=== PATIENT | female | born 1985 ===

== ENCOUNTER 2018-01-17 23:20 | Inpatient (IN) | payer BC ==
[2018-01-17 23:38] VITALS: BMI 23.4
[2018-01-18] MEDS ORDERED: Sodium Chloride 0.9% 500 ML IV STA (00:10)
--- NOTE | 2018-01-18 00:14 | ED PDOC ---
Arrival/HPI <Luis E Koroma - Last Filed: 01/18/18 02:56> - General Historian: Patient <Brianne Jolly PA-C - Last Filed: 01/18/18 19:53> - General Chief Complaint: Back Pain Time Seen by Provider: 01/17/18 23:49 - History of Present Illness Narrative History of Present Illness (Text): 01/18/18 00:11 32 yo F c/o gradual onset of constant b/l flank pain radiating to the b/l hips x2-3 days associated with nausea, worsening in intensity, she has been taking motrin with relief, but no relief today. Denies any h/o fever, chills, abdominal pain, V/D, urinary symptoms, trauma, injury, bowel/bladder incontinence, prior back pain, LE numbness or weakness, h/o renal stones/renal infection, h/o IVDU. (Brianne Jolly PA-C) Past Medical History - Infectious Disease Hx of Infectious Diseases: None - Cardiac Hx Cardiac Disorders: No - Pulmonary Hx Respiratory Disorders: Yes Hx Asthma: Yes - Neurological Hx Neurological Disorder: No - HEENT Hx HEENT Disorder: No - Renal Hx Renal Disorder: No - Endocrine/Metabolic Hx Endocrine Disorders: No - Hematological/Oncological Hx Blood Disorders: No - Integumentary Hx Dermatological Disorder: No - Musculoskeletal/Rheumatological Hx Musculoskeletal Disorders: No - Gastrointestinal Hx Gastrointestinal Disorders: No - Genitourinary/Gynecological Hx Genitourinary Disorders: No - Psychiatric Hx Psychophysiologic Disorder: No Hx Substance Use: No <Brianne Jolly PA-C - Last Filed: 01/18/18 19:53> Family/Social History Family/Social History: No Known Family HX Smoking Status: Never Smoked Hx Alcohol Use: Yes Frequency of alcohol use: Socially Hx Substance Use: No <Brianne Jolly PA-C - Last Filed: 01/18/18 19:53> Allergies/Home Meds <Luis E Koroma - Last Filed: 01/18/18 02:56> <Brianne Jolly PA-C - Last Filed: 01/18/18 19:53> Allergies/Adverse Reactions: Allergies No Known Allergies Allergy (Verified 01/17/18 23:38) Home Medications: Home Meds Medication Instructions Recorded Confirmed No Known Home Med 01/17/18 01/17/18 Review of Systems - Review of Systems Constitutional: absent: Fatigue, Fevers Respiratory: absent: SOB, Cough Cardiovascular: absent: Chest Pain, Palpitations Gastrointestinal: Nausea. absent: Abdominal Pain, Vomiting Genitourinary Female: absent: Dysuria, Frequency, Hematuria Musculoskeletal: Back Pain. absent: Arthralgias, Neck Pain, Joint Swelling Skin: absent: Rash, Pruritis, Skin Lesions Neurological: absent: Headache, Dizziness <Brianne Jolly PA-C - Last Filed: 01/18/18 19:53> Physical Exam Temperature: Afebrile Blood Pressure: Normal Pulse: Regular Respiratory Rate: Normal Appearance: Positive for: Well-Appearing, Non-Toxic, Comfortable Pain Distress: Moderate Mental Status: Positive for: Alert and Oriented X 3 - Systems Exam Head: Present: Atraumatic, Normocephalic Pupils: Present: PERRL Extroacular Muscles: Present: EOMI Conjunctiva: Present: Normal Mouth: Present: Moist Mucous Membranes Neck: Present: Normal Range of Motion Respiratory/Chest: Present: Clear to Auscultation, Good Air Exchange. No: Respiratory Distress, Accessory Muscle Use Cardiovascular: Present: Regular Rate and Rhythm, Normal S1, S2. No: Murmurs Abdomen: Present: Tenderness (+L flank tenderness). No: Distention, Peritoneal Signs Back: Present: Normal Inspection, CVA Tenderness (+b/l CVA tenderness), Paraspinal Tenderness (+paralumbar tenderness). No: Midline Tenderness, Pain with Leg Raise Upper Extremity: Present: Normal Inspection. No: Cyanosis, Edema Lower Extremity: Present: Normal Inspection, NORMAL PULSES, Normal ROM, Neurovascularly Intact, Capillary Refill < 2 s. No: Edema, Tenderness, Swelling , Deformity, Temperature Abnormalties Neurological: Present: GCS=15, CN II-XII Intact, Speech Normal, Motor Func Grossly Intact, Normal Sensory Function Skin: Present: Warm, Dry, Normal Color. No: Rashes Psychiatric: Present: Alert, Oriented x 3, Normal Insight, Normal Concentration <Brianne Jolly PA-C - Last Filed: 01/18/18 19:53> Vital Signs Temp Pulse Resp BP Pulse Ox 01/18/18 03:26 82 20 113/72 99 01/17/18 23:38 98.6 F 102 H 18 119/78 98 Medical Decision Making <Luis E Koroma - Last Filed: 01/18/18 02:56> <Brianne Jolly PA-C - Last Filed: 01/18/18 19:53> ED Course and Treatment: EXAM: CT Abdomen and Pelvis Without Intravenous Contrast Dictated and Authenticated by: Shaun Oakley MD 01/18/2018 2:18 AM IMPRESSION: 1. Mild left hydronephrosis and perinephric stranding. No renal or ureteral stones. This could be due to a recently passed stone, a non-radiopaque filling defect such as blood clot or soft tissue, or reflux/infection. 2. 6.2 cm low density left adnexal lesion likely a mildly complicated cyst. Recommend ultrasound characterization when clinically appropriate. 3. Borderline gallbladder wall thickening without gallbladder distention or calcified stones. Cholecystitis is considered to be unlikely based on these findings, but if clinically suspected could be correlated with ultrasound. 01/18/18 02:53 On reexamination, patient is still with left flank pain which is now returning. CT was reviewed. Patient will be admitted to hospitalist for acute pyelonephritis. Case discussed with medical registrar and Dr. Tello who is aware and agrees with the plan. Accepts patient into hospitalist service. (Luis E Koroma) 01/18/18 00:15 Impression : r/o renal colic, consider musculoskeletal back pain Plan : - IV - NS bolus IV - Labs - UA - Uhcg - CT A/P - Toradol IV - Zofran 4 mg IV Labs reviewed : wbc wnl, cmp/lipse wnl, UA +blood/+nitrate/large leuks, wbc tntc. Uhcg (-). Considering labs and patient's signs and symptoms, patient likely has pyelonephritis. Rocephin 1 g IV ordered. Labs and urine results d/w the patient. 01/18/18 01:42 On reevaluation patient reports mild improvement of pain, however she still is complaining of left flank pain at this time and is requesting for pain medicine. On exam, patient is laying in bed comfortably in no acute distress, abdomen soft nontender still with left flank and left CVA tenderness. Patient medicated with morphine 4 mg IV and Zofran 4 mg IV. Patient returned from CT and results of CT still pending. (Rik DUMAS,Brianne Fragoso) - Lab Interpretations Lab Results: 01/18/18 00:19 01/18/18 00:19 Lab Results 01/18/18 00:27: Urine Color Yellow, Urine Appearance Turbid, Urine pH 6.5, Ur Specific [place] 1.020, Urine Protein 30 H, Urine Glucose (UA) Negative, Urine Ketones Negative, Urine Blood Moderate H, Urine Nitrate Positive H, Urine Bilirubin Negative, Urine Urobilinogen 1.0 H, Ur Leukocyte Esterase Large H, Urine RBC 1 - 3, Urine WBC Tntc, Ur Epithelial Cells 4 - 5, Urine Bacteria Many 01/18/18 00:19: Sodium 140, Potassium 3.8, Chloride 104, Carbon Dioxide 24, Anion Gap 16, BUN 9, Creatinine 0.5 L, Est GFR ( Amer) > 60, Est GFR (Non -Af Amer) > 60, Random Glucose 101, Calcium 9.5, Total Bilirubin 0.3, AST 44 H, ALT 25, Alkaline Phosphatase 51, Total Protein 8.0, Albumin 4.4, Globulin 3.6, Albumin/Globulin Ratio 1.2, Lipase 52 01/18/18 00:19: WBC 9.7, RBC 3.58, Hgb 11.2 L, Hct 33.1 L, MCV 92.5, MCH 31.3, MCHC 33.8, RDW 12.4, Plt Count 232, MPV 10.3, Gran % 72.4 H, Lymph % (Auto) 15.7 L, [place] % (Auto) 11.6 H, Eos % (Auto) 0.2 L, Baso % (Auto) 0.1, Gran # 7.01 H, Lymph # (Auto) 1.5, [place] # (Auto) 1.1 H, Eos # (Auto) 0.0, Baso # (Auto ) 0.01 - RAD Interpretation Radiology Orders: 01/18/18 00:10 ABD & PELVIS W/O PO OR IV CONT [CT] Stat - Medication Orders Current Medication Orders: Acetaminophen (Tylenol 325mg Tab) 650 mg PO Q6H PRN PRN Reason: Fever >100.4 F Last Admin: 01/18/18 09:01 Dose: 650 mg [facility] Pain/Vitals Document 01/18/18 09:01 EP (Rec: 01/18/18 09:01 [id number] Pain Reassessment Is This A Pain ReAssessment? No Sleep Is patient sleeping during reassessment? No Presence of Pain Presence of Pain No Vitals Temperature (97.6 F-99.6 F) 100.5 F Temperature Source Rectal Re-Assess: [facility] Pain/Vitals Document 01/18/18 10:01 EP (Rec: 01/18/18 18:50 EP [id number]) Pain Reassessment Is This A Pain ReAssessment? Yes Sleep Is patient sleeping during reassessment? No Presence of Pain Presence of Pain No Ceftriaxone Sodium (Rocephin 1 Gram Ivpb) 1 gm in 100 mls @ 100 mls/hr IVPB 0200 JUAN PRN Reason: Protocol Stop: 01/21/18 02:01 Sodium Chloride (Sodium Chloride 0.9%) 1,000 mls @ 100 mls/hr IV .Q10H JUAN Last Admin: 01/18/18 05:05 Dose: 100 mls/hr eMAR Start Stop Document 01/18/18 05:05 BR (Rec: 01/18/18 05:05 BR [id number]) Intravenous Solution Start Date 01/18/18 Start Time 05:05 Morphine Sulfate (Morphine) 4 mg IVP Q4H PRN PRN Reason: Pain, severe (8-10) Last Admin: 01/18/18 17:37 Dose: 4 mg [facility] Pain Assessment Document 01/18/18 17:37 EP (Rec: 01/18/18 17:37 [id number] Pain Reassessment Is this a pain reassessment? No Sleep Is patient sleeping during reassessment? No Presence of Pain Presence of Pain Yes Description Description Intermittent Pain Behavior Restlessness Aggravating Factors ADL's Alleviating Factors/Management Medication Techniques IVP Administration Document 01/18/18 17:37 EP (Rec: 01/18/18 17:37 EP [id number]) Charges for Administration # of IVP Administrations 1 Re-Assess: [facility] Pain Assessment Document 01/18/18 18:37 EP (Rec: 01/18/18 18:50 [id number] Pain Reassessment Is this a pain reassessment? Yes Sleep Is patient sleeping during reassessment? No Presence of Pain Presence of Pain No Ondansetron HCl (Zofran Inj) 4 mg IVP Q8H PRN PRN Reason: Nausea/Vomiting Stop: 01/22/18 23:59 Last Admin: 01/18/18 05:39 Dose: 4 mg IVP Administration Document 01/18/18 05:39 BR (Rec: 01/18/18 05:39 BR [id number]) Charges for Administration # of IVP Administrations 1 Discontinued Medications Sodium Chloride (Sodium Chloride 0.9%) 500 mls @ 1,000 mls/hr IV .Q30M STA Stop: 01/18/18 00:39 Last Admin: 01/18/18 00:50 Dose: 1,000 mls/hr eMAR Start Stop Document 01/18/18 00:50 SS (Rec: 01/18/18 00:50 SS [id number]) Intravenous Solution Start Date 01/18/18 Start Time 00:50 End Date 01/18/18 End time 01:20 Total Infusion Time 30 Ceftriaxone Sodium (Rocephin 1 Gram Ivpb) 1 gm in 100 mls @ 200 mls/hr IVPB STAT STA PRN Reason: Protocol Stop: 01/18/18 01:08 Last Admin: 01/18/18 00:59 Dose: 200 mls/hr eMAR Start Stop Document 01/18/18 00:59 OCS (Rec: 01/18/18 01:00 [id number]) Intravenous Solution Start Date 01/18/18 Start Time 00:59 End Date 01/18/18 End time 01:29 Total Infusion Time 30 Ketorolac Tromethamine (Toradol) 30 mg IVP STAT STA Stop: 01/18/18 00:11 Last Admin: 01/18/18 00:49 Dose: 30 mg MAR Pain Assessment Document 01/18/18 00:49 SS (Rec: 01/18/18 00:50 SS [id number]) Pain Reassessment Is this a pain reassessment? Yes Sleep Is patient sleeping during reassessment? No Presence of Pain Presence of Pain Yes IVP Administration Document 01/18/18 00:49 SS (Rec: 01/18/18 00:50 SS [id number]) Charges for Administration # of IVP Administrations 1 Morphine Sulfate (Morphine) 4 mg IVP STAT STA Stop: 01/18/18 01:43 Last Admin: 01/18/18 01:56 Dose: 4 mg MAR Pain Assessment Document 01/18/18 01:56 SS (Rec: 01/18/18 01:56 SS [id number]) Pain Reassessment Is this a pain reassessment? Yes Sleep Is patient sleeping during reassessment? No Presence of Pain Presence of Pain Yes Pain Scale Used Pain Scale Used Numeric Location Left, Right or Bilateral Left Pain Location Body Site Back IVP Administration Document 01/18/18 01:56 SS (Rec: 01/18/18 01:56 SS [id number]) Charges for Administration # of IVP Administrations 1 Morphine Sulfate (Morphine) 4 mg IVP STAT STA Stop: 01/18/18 03:11 Last Admin: 01/18/18 03:30 Dose: 4 mg MAR Pain Assessment Document 01/18/18 03:30 SS (Rec: 01/18/18 03:31 SS [id number]) Pain Reassessment Is this a pain reassessment? Yes Sleep Is patient sleeping during reassessment? No Presence of Pain Presence of Pain Yes Pain Scale Used Pain Scale Used Numeric Location Left, Right or Bilateral Left Pain Location Body Site Back Description Description Constant Intensity of Pain at present 9 IVP Administration Document 01/18/18 03:30 SS (Rec: 01/18/18 03:31 SS [id number]) Charges for Administration # of IVP Administrations 1 Morphine Sulfate (Morphine) 1 mg IVP STAT STA Stop: 01/18/18 05:55 Last Admin: 01/18/18 05:59 Dose: 1 mg MAR Pain Assessment Document 01/18/18 05:59 BR (Rec: 01/18/18 05:59 BR [id number]) Pain Reassessment Is this a pain reassessment? No Sleep Is patient sleeping during reassessment? No Presence of Pain Presence of Pain Yes IVP Administration Document 01/18/18 05:59 BR (Rec: 01/18/18 05:59 BR [id number]) Charges for Administration # of IVP Administrations 1 Ondansetron HCl (Zofran Inj) 4 mg IVP STAT STA Stop: 01/18/18 00:11 Last Admin: 01/18/18 00:50 Dose: 4 mg IVP Administration Document 01/18/18 00:50 SS (Rec: 01/18/18 00:50 SS [id number]) Charges for Administration # of IVP Administrations 1 Ondansetron HCl (Zofran Inj) 4 mg IVP STAT STA Stop: 01/18/18 01:43 Last Admin: 01/18/18 01:55 Dose: 4 mg IVP Administration Document 01/18/18 01:55 SS (Rec: 01/18/18 01:56 SS [id number]) Charges for Administration # of IVP Administrations 1 Ondansetron HCl (Zofran Inj) 4 mg IVP Q8H JUAN Stop: 01/22/18 23:59 - PA / CERTIFIED PEDORTHOTIST / Resident Statement FAIZAN has reviewed & agrees with the documentation as recorded. / has examined the patient and agrees with the treatment plan. - Scribe Statement The provider has reviewed the documentation as recorded by the Scribe <Luis E Koroma - Last Filed: 01/18/18 02:56> - PA / CERTIFIED PEDORTHOTIST / Resident Statement FAIZAN has reviewed & agrees with the documentation as recorded. <Brianne Jolly PA-C - Last Filed: 01/18/18 19:53> - Scribe Statement Roshan Blanco Provider Scribe Attestation: All medical record entries made by the Scribe were at my direction and personally dictated by me. I have reviewed the chart and agree that the record accurately reflects my personal performance of the history, physical exam, medical decision making, and the department course for this patient. I have also personally directed, reviewed, and agree with the discharge instructions and disposition. (Luis E Koroma) Disposition/Present on Arrival - Present on Arrival Any Indicators Present on Arrival: No - Disposition Have Diagnosis and Disposition been Completed?: Yes Disposition Time: 02:52 <Luis E Koroma - Last Filed: 01/18/18 02:56> - Present on Arrival Any Indicators Present on Arrival: No History of DVT/PE: No History of Uncontrolled Diabetes: No Urinary Catheter: No History of Decub. Ulcer: No History Surgical Site Infection Following: None - Disposition Have Diagnosis and Disposition been Completed?: No <Brianne Jolly PA-C - Last Filed: 01/18/18 19:53> - Disposition Diagnosis: Pyelonephritis Disposition: HOSPITALIZED Patient Problems: Current Active Problems Problem Status Onset Pyelonephritis Acute Condition: STABLE
[2018-01-18 00:36] LABS: PH,URINE 6.5 (4.7-8.0); URINE BILIRUBIN NEGATIVE (NEGATIVE); URINE BLOOD MODERATE (NEGATIVE); URINE GLUCOSE (UA) NEGATIVE (NEGATIVE); URINE LEUKOCYTE ESTERASE LARGE Leu/uL (NEGATIVE); URINE PROTEIN 30 mg/dL (<30 mg/dL)
[2018-01-18 00:37] LABS: BASO # 0.01 K/mm3 (0.0-2.0); BASO % 0.1 % (0.0-3.0); EOS % 0.2 % (1.5-5.0); GRAN # 7.01 (1.4-6.5); GRAN % 72.4 % (50.0-68.0); HEMOGLOBIN 11.2 g/dL (12.0-16.0); LYMPH # 1.5 (1.2-3.4); LYMPH % 15.7 % (22.0-35.0); MEAN CELL VOLUME 92.5 fl (80.0-105.0); MEAN CORPUSCULAR HEMOGLOBIN 31.3 pg (25.0-35.0); MEAN CORPUSCULAR HGB CONC 33.8 g/dl (31.0-37.0); MEAN PLATELET VOLUME 10.3 fl (7.0-11.0); MONO # 1.1 (0.1-0.6); MONO % 11.6 % (1.0-6.0); RBC 3.58 10^6/uL (3.5-6.1); RED CELL DISTRIBUTION WIDTH 12.4 % (11.5-14.5); WHITE BLOOD COUNT 9.7 10^3/ul (4.5-11.0)
[2018-01-18 00:38] LABS: ALB/GLOB RATIO 1.2 (1.1-1.8); ALBUMIN 4.4 g/dL (3.0-4.8); ALT/SGPT 25 U/L (7-56); AST/SGOT 44 U/L (14-36); BLOOD UREA NITROGEN 9 mg/dL (7-21); CALCIUM 9.5 mg/dL (8.4-10.5); GFR AFRICAN-AMERICAN > 60; GFR NON-AFRICAN AMERICAN > 60; LIPASE 52 U/L (23-300)
[2018-01-18 00:38] LABS: URINE APPEARANCE TURBID (CLEAR); URINE COLOR YELLOW (YELLOW)
[2018-01-18] MEDS ORDERED: cefTRIAXone 1 gm 1 GM/100 ML BAG IVPB STA (00:39)
[2018-01-18 00:43] LABS: URINE BACTERIA MANY (NEG); URINE WBC TNTC /hpf (0-6)
[2018-01-18] MEDS ORDERED: Morphine 4 mg/ml ISec IVP STA ×2 (01:42→03:10)
--- NOTE | 2018-01-18 03:54 | CP.PCM.HP ---
<Colby Salinas - Last Filed: 01/18/18 08:08> History of Present Illness - History of Present Illness History of Present Illness: Colby Salinas D.O. PGY-1, History and Physical for Dr Omer Lobo: Flank pain for 3 days 32 y/o female with no PMH presents to ED with 3 days h/o bilateral flank pain that's worse on the left side. Pain is 8/10, radiates to both legs posteriorly and to the front of her abdomen, took Motrin 800 mg that initially releived her pain but does not help now. Pain is worse during inspiration. Pain is associated with nausea, chills. Patient denied vomiting, diarrhea, urinary frquency,urgency, burning urination, malodor urine or recent urinary infection. Patient denied chest pain, palpitation, WILKS, cough, dypnea, hemoptysis, hematemesis, dark stool, bleeding per rectum, rash, palpitation, WILKS, cough, dypnea PMH: denied PSH: c/s x3,hysterectomy Fam Hx: no h/o kidney disease Soc Hx: denied smoking ordrug use, occasional alcohol use. lives with family Meds: Motrin Allergies: NKDA PMD: Dr Laughlin Present on Admission - Present on Admission Any Indicators Present on Admission: No Past Patient History - Infectious Disease Hx of Infectious Diseases: None - Past Social History Smoking Status: Never Smoked - CARDIAC Hx Cardiac Disorders: No - PULMONARY Hx Respiratory Disorders: Yes Hx Asthma: Yes - NEUROLOGICAL Hx Neurological Disorder: No - HEENT Hx HEENT Problems: No - RENAL Hx Chronic Kidney Disease: No - ENDOCRINE/METABOLIC Hx Endocrine Disorders: No - HEMATOLOGICAL/ONCOLOGICAL Hx Blood Disorders: No - INTEGUMENTARY Hx Dermatological Problems: No - MUSCULOSKELETAL/RHEUMATOLOGICAL Hx Musculoskeletal Disorders: No - GASTROINTESTINAL Hx Gastrointestinal Disorders: No - GENITOURINARY/GYNECOLOGICAL Hx Genitourinary Disorders: No - PSYCHIATRIC Hx Psychophysiologic Disorder: No Hx Substance Use: No - SURGICAL HISTORY Hx Surgeries: No Meds Allergies/Adverse Reactions: Allergies Allergy/AdvReac Type Severity Reaction Status Date / Time No Known Allergies Allergy Verified 01/17/18 23:38 Results - Vital Signs Recent Vital Signs: Last Vital Signs Temp 98.6 F 01/17/18 23:38 Pulse 82 01/18/18 03:26 Resp 20 01/18/18 03:26 BP 113/72 01/18/18 03:26 Pulse Ox 99 01/18/18 03:26 - Labs Result Diagrams: 01/18/18 06:45 01/18/18 06:45 Assessment & Plan - Assessment and Plan (Free Text) Assessment: 32 y/o female with no PMH presents to ED with 3 days h/o bilateral flank pain that's worse on the left side. CT A/P shows mild left hydronephrosis , no stones. no leukocytosis. no fever, chills. Plan: 1)Bilateral flank pain CT abdomen/pelvis: mild left hydronephrosis , no stones. possibly passed stone pylonephritis vs nephrolithiasis 6.2 cm left adenexal mass likely complicated cyst. UA: turbid, +nitrate,+leukocyte esterase and many bacteria WBC: 9.7 afebrile US pelvis ordered morphine 4 mg ketorolac 30 mg given. not effective ceftriaxone 1 gm q24h IVF: NS@100/HR 2)Anemia MCV normocytic range Fe study FE,TIBC, Ferritin B12, Folate FOBT Rectal exam not performed due to severe pain monitor closely daily CBC 3) Prophylaxis: DVT ppx SCD GI ppx protonix Case reviewed and discussed with Dr Tello - Date & Time Date: 01/18/18 Time: 04:00 <Jess Tello - Last Filed: 01/19/18 03:17> Results - Vital Signs Recent Vital Signs: Last Vital Signs Temp 100.9 F H 01/18/18 21:54 Pulse 111 H 01/18/18 21:54 Resp 18 01/18/18 21:54 BP 101/72 01/18/18 21:54 Pulse Ox 98 01/18/18 21:54 - Labs Result Diagrams: 01/18/18 06:45 01/18/18 06:45 Labs: Laboratory Results - last 24 hr 01/18/18 01/18/18 06:45 06:45 WBC 11.3 H RBC 3.37 L Hgb 10.4 L Hct 31.3 L MCV 92.9 MCH 30.9 MCHC 33.2 RDW 12.7 Plt Count 179 MPV 9.9 Gran % 84.8 H Lymph % (Auto) 4.7 L [place] % (Auto) 10.4 H Eos % (Auto) 0.0 L Baso % (Auto) 0.1 Gran # 9.57 H Lymph # (Auto) 0.5 L [place] # (Auto) 1.2 H Eos # (Auto) 0.0 Baso # (Auto) 0.01 Neutrophils % (Manual) 87 H Band Neutrophils % 1 Lymphocytes % (Manual) 5 L Monocytes % (Manual) 7 H Platelet Evaluation Normal Sodium 141 Potassium 3.8 Chloride 107 Carbon Dioxide 23 Anion Gap 15 BUN 7 Creatinine 0.5 L Est GFR ( Amer) > 60 Est GFR (Non-Af Amer) > 60 Random Glucose 109 Calcium 8.7 Phosphorus 2.3 L Magnesium 1.8 Total Bilirubin 0.4 AST 19 ALT 24 Alkaline Phosphatase 41 Total Protein 7.0 Albumin 3.8 Globulin 3.2 Albumin/Globulin Ratio 1.2 Attending/Attestation - Attestation I have personally seen and examined this patient.: Yes I have fully participated in the care of the patient.: Yes I have reviewed all pertinent clinical information: Yes Notes (Text): 01/19/18 03:15Patient was seen when she was in the ER. Agree with history,physical examination, assessment and plan. Following should be noted. CC: Both flank pain.-Since Tuesday. Nausea. Chills. AST 44 PMH: History of asthama. History of anemia. No history of intubation. History of x 3. History of breast augmentation. UTI. Pyelonephritis. Borderline Anemia. Alcohol use ocassionally. Family history-MGM HTN Family iydtovd-Klnmad-Mccj cancer. PMD-Cindy Brown. ROS: Head aches sometimes.
[2018-01-18] MEDS: Sodium Chloride 0.9% 1,000 ML IV SCH (05:05)
[2018-01-18] MEDS ORDERED: Morphine 2 mg/ml ISec IVP STA (05:54)
[2018-01-18 07:11] LABS: BASO # 0.01 K/mm3 (0.0-2.0); BASO % 0.1 % (0.0-3.0); GRAN # 9.57 (1.4-6.5); GRAN % 84.8 % (50.0-68.0); HEMOGLOBIN 10.4 g/dL (12.0-16.0); LYMPH # 0.5 (1.2-3.4); LYMPH % 4.7 % (22.0-35.0); MEAN CELL VOLUME 92.9 fl (80.0-105.0); MEAN CORPUSCULAR HEMOGLOBIN 30.9 pg (25.0-35.0); MEAN CORPUSCULAR HGB CONC 33.2 g/dl (31.0-37.0); MEAN PLATELET VOLUME 9.9 fl (7.0-11.0); MONO # 1.2 (0.1-0.6); MONO % 10.4 % (1.0-6.0); PLATELET COUNT 179 10^3/uL (120.0-450.0); RBC 3.37 10^6/uL (3.5-6.1); RED CELL DISTRIBUTION WIDTH 12.7 % (11.5-14.5); WHITE BLOOD COUNT 11.3 10^3/ul (4.5-11.0)
[2018-01-18 07:29] LABS: ALB/GLOB RATIO 1.2 (1.1-1.8); ALBUMIN 3.8 g/dL (3.0-4.8); ALT/SGPT 24 U/L (7-56); AST/SGOT 19 U/L (14-36); BLOOD UREA NITROGEN 7 mg/dL (7-21); CALCIUM 8.7 mg/dL (8.4-10.5); GFR AFRICAN-AMERICAN > 60; GFR NON-AFRICAN AMERICAN > 60
[2018-01-18 08:13] LABS: BAND 1 % (0-2); LYMPHOCYTE 5 % (22.0-35.0); MONOCYTE 7 % (1.0-6.0); NEUTROPHIL 87 % (50.0-70.0); PLATELET ESTIMATE NORMAL (NORMAL)
--- NOTE | 2018-01-18 08:58 | CT ---
Date of service: 01/18/2018 PROCEDURE: CT Abdomen and Pelvis without intravenous contrast HISTORY: flank pain, r/o renal colic COMPARISON: None. TECHNIQUE: Unenhanced study. Neither oral nor intravenous contrast administered. Radiation dose: Total exam DLP = 248.94 mGy-cm. This CT exam was performed using one or more of the following dose reduction techniques: Automated exposure control, adjustment of the mA and/or kV according to patient size, and/or use of iterative reconstruction technique. FINDINGS: LOWER THORAX: Unremarkable. LIVER: Unremarkable. No gross lesion or ductal dilatation. GALLBLADDER AND BILE DUCTS: Unremarkable. PANCREAS: Unremarkable. No gross lesion or ductal dilatation. SPLEEN: Unremarkable. ADRENALS: Unremarkable. No mass. KIDNEYS AND URETERS: Left hydronephrosis and hydroureter. No ureteral or bladder calculi identified. No upper tract calculi identified. VASCULATURE: Unremarkable. No aortic aneurysm. BOWEL: Unremarkable. No obstruction. No gross mural thickening. APPENDIX: Unremarkable. Normal appendix. PERITONEUM: Trace free fluid identified in the pelvis/cul de sac.. No free air. LYMPH NODES: Unremarkable. No enlarged lymph nodes. BLADDER: Unremarkable. REPRODUCTIVE: Unremarkable uterus. Left adnexal cyst 4.1 x 6.8 cm. BONES: No acute fracture. OTHER FINDINGS: None. IMPRESSION: Left hydroureter/ hydronephrosis likely the sequela of recently passed or non visible calculi. Left adnexal cysts. Follow-up ultrasound advised. Concordant results (preliminary interpretation) provided by [facility]. Procedure Completed: 01:34 Preliminary ([facility]) Report: Dictated and Authenticated: 02:18. Final Interpretation: 08:56. January 18, 2018.
[2018-01-18] MEDS: Morphine 4 mg/ml ISec IVP PRN ×5 (09:01→23:40)
--- NOTE | 2018-01-18 11:25 | CP.PCM.CON ---
<Amy Pollard - Last Filed: 01/18/18 11:43> History of Present Illness - History of Present Illness History of Present Illness: PGY-3 Infectious disease consult note for Dr. Guzman's service 32 yo female with PMH of asthma and anemia presented with 4 days history of bilateral flank pain, worse on the left side compared to rigth. Pain radiates to both legs posteriorly and to the front of her abdomen. Patient states that pain has been progressly worsening, and is exacerbated with movement and deep inspiration. She took Motrin 800 mg that initially relieved her pain but it returned. Pain is associated with nausea, chills, she reports 1 episode of vomiting this morning. Patient denied diarrhea, urinary frequency,urgency, burning urination, malodor urine or recent urinary infection. Patient denied chest pain, palpitation, Dyspnea, cough, hemoptysis, hematemesis, dark stool, bleeding per rectum, rash, headache, dizziness. PMH: asthma, anemia PSH: c/s x3, breast augmentation Family History: father lung ca and leukemia, Social History: denied smoking or illicit drug use, occasional alcohol use Allergies: NKDA Review of Systems - Review of Systems All systems: reviewed and no additional remarkable complaints except Past Patient History - Infectious Disease Hx of Infectious Diseases: None - Past Social History Smoking Status: Never Smoked - CARDIAC Hx Cardiac Disorders: No - PULMONARY Hx Respiratory Disorders: Yes Hx Asthma: Yes - NEUROLOGICAL Hx Neurological Disorder: No - HEENT Hx HEENT Problems: No - RENAL Hx Chronic Kidney Disease: No - ENDOCRINE/METABOLIC Hx Endocrine Disorders: No - HEMATOLOGICAL/ONCOLOGICAL Hx Blood Disorders: No - INTEGUMENTARY Hx Dermatological Problems: No - MUSCULOSKELETAL/RHEUMATOLOGICAL Hx Musculoskeletal Disorders: No - GASTROINTESTINAL Hx Gastrointestinal Disorders: No - GENITOURINARY/GYNECOLOGICAL Hx Genitourinary Disorders: No - PSYCHIATRIC Hx Psychophysiologic Disorder: No Hx Substance Use: No - SURGICAL HISTORY Hx Surgeries: No Meds Allergies/Adverse Reactions: Allergies Allergy/AdvReac Type Severity Reaction Status Date / Time No Known Allergies Allergy Verified 01/17/18 23:38 - Medications Medications: Current Medications Acetaminophen (Tylenol 325mg Tab) 650 mg PO Q6H PRN PRN Reason: Fever >100.4 F Last Admin: 01/18/18 09:01 Dose: 650 mg Ceftriaxone Sodium (Rocephin 1 Gram Ivpb) 1 gm in 100 mls @ 100 mls/hr IVPB 0200 JUAN PRN Reason: Protocol Stop: 01/21/18 02:01 Sodium Chloride (Sodium Chloride 0.9%) 1,000 mls @ 100 mls/hr IV .Q10H [facility] Last Admin: 01/18/18 05:05 Dose: 100 mls/hr Morphine Sulfate (Morphine) 4 mg IVP Q4H PRN PRN Reason: Pain, severe (8-10) Last Admin: 01/18/18 09:01 Dose: 4 mg Ondansetron HCl (Zofran Inj) 4 mg IVP Q8H PRN PRN Reason: Nausea/Vomiting Stop: 01/22/18 23:59 Last Admin: 01/18/18 05:39 Dose: 4 mg Physical Exam - Constitutional Additional comments: mild distress due to pain - Head Exam Head Exam: ATRAUMATIC, NORMAL INSPECTION, NORMOCEPHALIC - Eye Exam Eye Exam: EOMI, Normal appearance - ENT Exam ENT Exam: Mucous Membranes Moist - Respiratory Exam Respiratory Exam: Clear to Auscultation Bilateral, NORMAL BREATHING PATTERN. absent: Accessory Muscle Use, Rales, Rhonchi, Wheezes, Respiratory Distress - Cardiovascular Exam Cardiovascular Exam: REGULAR RHYTHM, +S1, +S2. absent: Bradycardia, Tachycardia , Diastolic murmur, Systolic Murmur - GI/Abdominal Exam GI & Abdominal Exam: Normal Bowel Sounds, Soft, Tenderness. absent: Distended, Firm, Guarding - Extremities Exam Extremities exam: Positive for: normal inspection. Negative for: pedal edema, tenderness - Back Exam Back exam: CVA tenderness (L) (L>R), CVA tenderness (R) - Neurological Exam Neurological exam: Alert, Oriented x3 - Skin Skin Exam: Dry, Intact, Normal Color, Warm Results - Vital Signs Recent Vital Signs: Last Vital Signs Temp 100.5 F H 01/18/18 09:01 Pulse 94 H 01/18/18 06:00 Resp 18 01/18/18 06:00 BP 114/84 01/18/18 06:00 Pulse Ox 100 01/18/18 06:00 - Labs Result Diagrams: 01/18/18 06:45 01/18/18 06:45 Labs: Laboratory Results - last 24 hr 01/18/18 01/18/18 06:45 06:45 WBC 11.3 H RBC 3.37 L Hgb 10.4 L Hct 31.3 L MCV 92.9 MCH 30.9 MCHC 33.2 RDW 12.7 Plt Count 179 MPV 9.9 Gran % 84.8 H Lymph % (Auto) 4.7 L [place] % (Auto) 10.4 H Eos % (Auto) 0.0 L Baso % (Auto) 0.1 Gran # 9.57 H Lymph # (Auto) 0.5 L [place] # (Auto) 1.2 H Eos # (Auto) 0.0 Baso # (Auto) 0.01 Neutrophils % (Manual) 87 H Band Neutrophils % 1 Lymphocytes % (Manual) 5 L Monocytes % (Manual) 7 H Platelet Evaluation Normal Sodium 141 Potassium 3.8 Chloride 107 Carbon Dioxide 23 Anion Gap 15 BUN 7 Creatinine 0.5 L Est GFR ( Amer) > 60 Est GFR (Non-Af Amer) > 60 Random Glucose 109 Calcium 8.7 Phosphorus 2.3 L Magnesium 1.8 Total Bilirubin 0.4 AST 19 ALT 24 Alkaline Phosphatase 41 Total Protein 7.0 Albumin 3.8 Globulin 3.2 Albumin/Globulin Ratio 1.2 Assessment & Plan - Assessment and Plan (Free Text) Assessment: 32 yo female with PMH of asthma presented with 4 days history of bilateral flank pain most likely due to nephrolithiasis with possible pyelonephritis. UA was positive for blood, nitrates and leukocyte esterase. Patient is afebrile, with mild tachycardia, and leukocytosis. CT abd/pel showed mild left hydronephrosis and perinephric stranding, no renal or urethral stones possibly due to recently passed stone or radiolucent stones. Renal and pelvic US pending. Follow up HIV. Follow up blood and urine cultures. case reviewed and discussed with attending, Dr. Guzman <Jassi Guzman - Last Filed: 01/18/18 17:05> Meds - Medications Medications: Current Medications Acetaminophen (Tylenol 325mg Tab) 650 mg PO Q6H PRN PRN Reason: Fever >100.4 F Last Admin: 01/18/18 09:01 Dose: 650 mg Ceftriaxone Sodium (Rocephin 1 Gram Ivpb) 1 gm in 100 mls @ 100 mls/hr IVPB 0200 JUAN PRN Reason: Protocol Stop: 01/21/18 02:01 Sodium Chloride (Sodium Chloride 0.9%) 1,000 mls @ 100 mls/hr IV .Q10H JUAN Last Admin: 01/18/18 05:05 Dose: 100 mls/hr Morphine Sulfate (Morphine) 4 mg IVP Q4H PRN PRN Reason: Pain, severe (8-10) Last Admin: 01/18/18 13:01 Dose: 4 mg Ondansetron HCl (Zofran Inj) 4 mg IVP Q8H PRN PRN Reason: Nausea/Vomiting Stop: 01/22/18 23:59 Last Admin: 01/18/18 05:39 Dose: 4 mg Results - Vital Signs Recent Vital Signs: Last Vital Signs Temp 98.2 F 01/18/18 14:00 Pulse 89 01/18/18 14:00 Resp 18 01/18/18 14:00 BP 102/57 L 01/18/18 14:00 Pulse Ox 100 01/18/18 14:00 - Labs Result Diagrams: 01/18/18 06:45 01/18/18 06:45 Labs: Laboratory Results - last 24 hr 01/18/18 01/18/18 06:45 06:45 WBC 11.3 H RBC 3.37 L Hgb 10.4 L Hct 31.3 L MCV 92.9 MCH 30.9 MCHC 33.2 RDW 12.7 Plt Count 179 MPV 9.9 Gran % 84.8 H Lymph % (Auto) 4.7 L [place] % (Auto) 10.4 H Eos % (Auto) 0.0 L Baso % (Auto) 0.1 Gran # 9.57 H Lymph # (Auto) 0.5 L [place] # (Auto) 1.2 H Eos # (Auto) 0.0 Baso # (Auto) 0.01 Neutrophils % (Manual) 87 H Band Neutrophils % 1 Lymphocytes % (Manual) 5 L Monocytes % (Manual) 7 H Platelet Evaluation Normal Sodium 141 Potassium 3.8 Chloride 107 Carbon Dioxide 23 Anion Gap 15 BUN 7 Creatinine 0.5 L Est GFR ( Amer) > 60 Est GFR (Non-Af Amer) > 60 Random Glucose 109 Calcium 8.7 Phosphorus 2.3 L Magnesium 1.8 Total Bilirubin 0.4 AST 19 ALT 24 Alkaline Phosphatase 41 Total Protein 7.0 Albumin 3.8 Globulin 3.2 Albumin/Globulin Ratio 1.2 Assessment & Plan - Assessment and Plan (Free Text) Assessment: Infectious Diseases Attending Physician Addendum Patient seen and examined, discussed with medical office professional instructor. I have reviewed the pertinent clinical information for the patient, including history of present illness, medical, personal and social histories, lab results and imaging findings. I agree with the above findings, assessment and plan. In addition, we have started the patient on Rocephin for sepsis due to left sided pyelonephritis associated with hydronephrosis and probable nephrolithiasis. Follow up blood and urine cx. Will monitor clinically.
--- NOTE | 2018-01-18 14:38 | US ---
Date of service: 01/18/2018 PROCEDURE: Ultrasound of the Kidneys HISTORY: pyelonephritis COMPARISON: None available. TECHNIQUE: Sonogram of the kidneys. FINDINGS: RIGHT KIDNEY: Measures: 4.1 x 5.2 x 11.5 cm. Normal in size, contour and echogenicity. No stone, solid mass lesion or hydronephrosis visualized. LEFT KIDNEY: Measures: 5 x 5.5 x 11.6 cm. Normal in size, contour and echogenicity. No stone, solid mass lesion or hydronephrosis visualized. OTHER FINDINGS: None. IMPRESSION: Unremarkable renal sonogram.
--- NOTE | 2018-01-18 14:38 | US ---
Date of service: 01/18/2018 HISTORY: Left adnexal lesion. LMP 12/25/2017 COMPARISON: January 18, 2018. CT abdomen and pelvis TECHNIQUE: Transabdominal only. Real-time technique with 2D, duplex and color Doppler FINDINGS: UTERUS: Measures cm. Normal in size and appearance. No fibroid or other mass lesion seen. ENDOMETRIUM: Measures mm in diameter. Unremarkable. CERVIX: No cervical abnormality identified. RIGHT OVARY: Measures 2.1 x 2.2 x 2.8 cm. No solid mass. Normal flow. LEFT OVARY: Measures 5.2 x 5.1 x 6.6 cm. Contiguous septated primarily cystic masses. 1.7 x 2.8 x 2.9 cm and 3.5 x 4.4 x 5.4 cm. Normal flow. FREE FLUID: No significant free fluid noted. OTHER FINDINGS: None. IMPRESSION: Septated mass/ complex cyst left adnexa corresponding to findings on recent CT scan. Continued follow-up recommended
--- NOTE | 2018-01-18 18:24 | PCM.URO ---
Urology Progress Note - Objective Lab Studies: Reviewed (gu dx: severe flank pain, mild hydronephrosis on ct , negative hydro on ultrasound , adnexal mass, possible left pyelonephritis, gu plans: suggest a r collections rep consult, continue antibiotics as per ID cystoscopy ,left retrograde pyelogram , left stent insertion for 01/19/ if ok with ID and Dr Crook thanks for consult full note to be dictated) Lab Results Last 24 Hours: Laboratory Results - last 24 hr 01/18/18 01/18/18 06:45 06:45 WBC 11.3 H RBC 3.37 L Hgb 10.4 L Hct 31.3 L MCV 92.9 MCH 30.9 MCHC 33.2 RDW 12.7 Plt Count 179 MPV 9.9 Gran % 84.8 H Lymph % (Auto) 4.7 L [place] % (Auto) 10.4 H Eos % (Auto) 0.0 L Baso % (Auto) 0.1 Gran # 9.57 H Lymph # (Auto) 0.5 L [place] # (Auto) 1.2 H Eos # (Auto) 0.0 Baso # (Auto) 0.01 Neutrophils % (Manual) 87 H Band Neutrophils % 1 Lymphocytes % (Manual) 5 L Monocytes % (Manual) 7 H Platelet Evaluation Normal Sodium 141 Potassium 3.8 Chloride 107 Carbon Dioxide 23 Anion Gap 15 BUN 7 Creatinine 0.5 L Est GFR ( Amer) > 60 Est GFR (Non-Af Amer) > 60 Random Glucose 109 Calcium 8.7 Phosphorus 2.3 L Magnesium 1.8 Total Bilirubin 0.4 AST 19 ALT 24 Alkaline Phosphatase 41 Total Protein 7.0 Albumin 3.8 Globulin 3.2 Albumin/Globulin Ratio 1.2 Vital Signs: Vital Signs - 24 hr 01/18/18 01/18/18 01/18/18 03:26 03:30 04:41 Temperature 97.9 F Pulse Rate 82 91 H Respiratory 20 18 18 Rate Blood Pressure 113/72 114/81 O2 Sat by Pulse 99 99 Oximetry 01/18/18 01/18/18 01/18/18 05:46 06:00 08:25 Temperature 97.7 F 97.9 F 100.5 F H Pulse Rate 100 H 94 H Respiratory 20 18 Rate Blood Pressure 104/68 114/84 O2 Sat by Pulse 96 100 Oximetry 01/18/18 01/18/18 09:01 14:00 Temperature 100.5 F H 98.2 F Pulse Rate 89 Respiratory 18 Rate Blood Pressure 102/57 L O2 Sat by Pulse 100 Oximetry
[2018-01-19] MEDS ORDERED: cefTRIAXone 1 gm 1 GM/100 ML BAG IVPB SCH ×2 (02:00→06:30)
[2018-01-19] MEDS: Morphine 4 mg/ml ISec IVP PRN ×5 (03:25→23:52)
[2018-01-19 04:33] LABS: BASO # 0.01 K/mm3 (0.0-2.0); BASO % 0.1 % (0.0-3.0); EOS % 0.1 % (1.5-5.0); GRAN # 6.26 (1.4-6.5); GRAN % 65.4 % (50.0-68.0); HEMOGLOBIN 9.5 g/dL (12.0-16.0); LYMPH # 2.3 (1.2-3.4); LYMPH % 23.8 % (22.0-35.0); MEAN CELL VOLUME 94.4 fl (80.0-105.0); MEAN CORPUSCULAR HEMOGLOBIN 31.5 pg (25.0-35.0); MEAN CORPUSCULAR HGB CONC 33.3 g/dl (31.0-37.0); MEAN PLATELET VOLUME 10.2 fl (7.0-11.0); MONO % 10.6 % (1.0-6.0); RBC 3.02 10^6/uL (3.5-6.1); WHITE BLOOD COUNT 9.6 10^3/ul (4.5-11.0)
[2018-01-19 04:38] LABS: ALB/GLOB RATIO 1.1 (1.1-1.8); ALBUMIN 3.1 g/dL (3.0-4.8); ALT/SGPT 23 U/L (7-56); AST/SGOT 13 U/L (14-36); BLOOD UREA NITROGEN 4 mg/dL (7-21); GFR AFRICAN-AMERICAN > 60; GFR NON-AFRICAN AMERICAN > 60
[2018-01-19] MEDS ORDERED: Morphine 4 mg/ml ISec IVP STA (10:48)
[2018-01-19] MEDS ORDERED: HYDROmorphone 1 mg/ml ISec IVP STA ×2 (11:05→20:23)
[2018-01-19] MEDS: Meropenem IV 1 gm in NS 50 ML IVPB SCH ×2 (11:40→22:15)
--- NOTE | 2018-01-19 12:45 | CP.PCM.PN ---
<Amy Pollard - Last Filed: 01/19/18 13:09> Subjective - Date & Time of Evaluation Date of Evaluation: 01/19/18 Time of Evaluation: 09:00 - Subjective Subjective: PGY-3 infectious disease progress note for Dr. Guzman Patient seen and examined at bedside. Patient reports 10/10 pain in her flank, She states that the pain has not improved and is now radiating up her back as well as down her legs and to her abdomen. She states that it is exacerbated by any movement. Overnight patient had fever with temperature of 100.9. Objective - Vital Signs/Intake and Output Vital Signs (last 24 hours): Temp Pulse Resp BP Pulse Ox 98.8 F 93 H 20 98/58 L 97 01/19/18 06:00 01/19/18 06:00 01/19/18 06:00 01/19/18 06:00 01/19/18 06:00 Intake and Output: 01/19/18 01/19/18 06:59 18:59 Intake Total 360 Balance 360 - Medications Medications: Current Medications Acetaminophen (Tylenol 325mg Tab) 650 mg PO Q6H PRN PRN Reason: Fever >100.4 F Last Admin: 01/18/18 21:14 Dose: 650 mg Sodium Chloride (Sodium Chloride 0.9%) 1,000 mls @ 100 mls/hr IV .Q10H JUAN Last Admin: 01/18/18 05:05 Dose: 100 mls/hr Meropenem (Merrem Iv 1 Gm Premix) 50 mls @ 100 mls/hr IVPB Q8 JUAN PRN Reason: Protocol Last Admin: 01/19/18 11:40 Dose: 100 mls/hr Morphine Sulfate (Morphine) 4 mg IVP Q3H PRN PRN Reason: Pain, severe (8-10) Last Admin: 01/19/18 09:29 Dose: 4 mg Ondansetron HCl (Zofran Inj) 4 mg IVP Q8H PRN PRN Reason: Nausea/Vomiting Stop: 01/22/18 23:59 Last Admin: 01/18/18 05:39 Dose: 4 mg - Labs Labs: 01/19/18 04:00 01/19/18 04:00 - Constitutional Appears: In Acute Distress (in pain ) - Head Exam Head Exam: ATRAUMATIC, NORMAL INSPECTION, NORMOCEPHALIC - Eye Exam Eye Exam: EOMI, Normal appearance - Respiratory Exam Respiratory Exam: Clear to Ausculation Bilateral, NORMAL BREATHING PATTERN. absent: Rhonchi, Wheezes, Respiratory Distress - Cardiovascular Exam Cardiovascular Exam: REGULAR RHYTHM, +S1, +S2. absent: Bradycardia, Tachycardia - GI/Abdominal Exam GI & Abdominal Exam: Soft, Tenderness. absent: Distended, Firm, Guarding - Extremities Exam Extremities Exam: Normal Inspection. absent: Pedal Edema, Tenderness - Back Exam Back Exam: CVA tenderness (L), CVA tenderness (R) - Neurological Exam Neurological Exam: Alert, Awake, Oriented x3 Assessment and Plan - Assessment and Plan (Free Text) Assessment: 32 yo female with PMH of asthma presented with 4 days history of bilateral flank pain most likely due to nephrolithiasis with possible pyelonephritis. Patient was febrile overnight. Will start patient on meropenem for broader coverage. Renal US showed no acute findings. pelvic US showed septated complex cyst left adnexa. Follow up HIV. Blood cultures showed no growth after 24hours. Follow up urine cultures. Agree with urology for cystoscopy. case reviewed and discussed with attending, Dr. Guzman <Jassi Guzman - Last Filed: 01/19/18 15:05> Objective - Vital Signs/Intake and Output Vital Signs (last 24 hours): Temp Pulse Resp BP Pulse Ox 98.8 F 93 H 20 98/58 L 97 01/19/18 06:00 01/19/18 06:00 01/19/18 06:00 01/19/18 06:00 01/19/18 06:00 Intake and Output: 01/19/18 01/19/18 06:59 18:59 Intake Total 360 240 Output Total 300 Balance 360 -60 - Medications Medications: Current Medications Acetaminophen (Tylenol 325mg Tab) 650 mg PO Q6H PRN PRN Reason: Fever >100.4 F Last Admin: 01/18/18 21:14 Dose: 650 mg Sodium Chloride (Sodium Chloride 0.9%) 1,000 mls @ 100 mls/hr IV .Q10H JUAN Last Admin: 01/18/18 05:05 Dose: 100 mls/hr Meropenem (Merrem Iv 1 Gm Premix) 50 mls @ 100 mls/hr IVPB Q8 JUAN PRN Reason: Protocol Last Admin: 01/19/18 11:40 Dose: 100 mls/hr Morphine Sulfate (Morphine) 4 mg IVP Q3H PRN PRN Reason: Pain, severe (8-10) Last Admin: 01/19/18 09:29 Dose: 4 mg Ondansetron HCl (Zofran Inj) 4 mg IVP Q8H PRN PRN Reason: Nausea/Vomiting Stop: 01/22/18 23:59 Last Admin: 01/18/18 05:39 Dose: 4 mg - Labs Labs: 01/19/18 04:00 01/19/18 04:00 Assessment and Plan - Assessment and Plan (Free Text) Assessment: Infectious Diseases Attending Physician Addendum Patient seen and examined, discussed with biomedical engineering technologist. I have reviewed the pertinent clinical information for the patient, including history of present illness, medical, personal and social histories, lab results and imaging findings. I agree with the above findings, assessment and plan. In addition, will change antibiotics to Merrem for this patient with sepsis from left sided pyelonephritis, with suspicion for left ovarian cyst compressing ureter. Patient should go for cystoscopy, pyelogram and stent placement if necessary. Follow up final blood and urine cx results.
--- NOTE | 2018-01-19 13:09 | RAD ---
Date of service: 01/19/2018 HISTORY: back pain COMPARISON: No prior. FINDINGS: LUNGS: No active pulmonary disease. PLEURA: No significant pleural effusion identified, no pneumothorax apparent. CARDIOVASCULAR: Normal. OSSEOUS STRUCTURES: No significant abnormalities. VISUALIZED UPPER ABDOMEN: Normal. OTHER FINDINGS: None. IMPRESSION: No active disease.
[2018-01-19] MEDS ORDERED: Iohexol 240 (50 ml) ONE (13:19)
--- NOTE | 2018-01-19 13:56 | CON ---
Copied To: Rafa Santacruz MD Attending MD: Rafa Santacruz MD DATE: 01/19/2018 UROLOGY CONSULTATION REASON FOR THE CONSULTATION: Left hydronephrosis. HISTORY OF PRESENT ILLNESS: This is a very pleasant lady who is admitted with acute abdominal pain in the left lower quadrant. She has no dysuria or urgency. On a CT scan, she was found to have the following: She was found to have mild left hydronephrosis. She was also found to have "an adnexal mass." There is no definite stone. There is official report of the CAT scan. I have just reviewed the CAT scan as well, but the official report is that there is mild left hydronephrosis. No stones, maybe a passed stone. ASSESSMENT AND PLAN: Below. The patient is currently not vomiting. Her pain has been managed with analgesic with morphine. According to her and the patient, there is no previous history of any drug use or abuse. The medicine helped initially and then it wears off after about three to four hours. Urologist consulted regarding the hydronephrosis. See the plans above. Since the initial imaging, the patient has had a pelvic ultrasound and a renal ultrasound. Again, the findings are consistent; there is no lesion within the bladder. There is adnexal mass and then there is actually no hydronephrosis. PAST MEDICAL AND SURGICAL HISTORY: As listed on the chart. The patient had three previous C-sections. No history of asthma, diabetes medical history. SOCIAL HISTORY: Does smoke. She is here with her . Her last was actually in 2011. She has 3 children. REVIEW OF SYSTEMS: As listed above. No constitutional complaints. No weight loss, chest pain, shortness of breath. PHYSICAL EXAMINATION: GENERAL: Young female. She is currently resting, but somewhat appearing uncomfortable. LUNGS: Clear. HEART: Normal S1, S2. ABDOMEN: There is no rebound or guarding. No evidence of acute abdomen. There is tenderness in the left lower quadrant and I cannot feel any mass effect. There is tenderness in the left flank, clearly difference between the left and right side. LABORATORY DATA: Labs noted. BUN, creatinine, white count, etc. all noted on the chart. CT scan as mentioned. I had a chance to review the CT scan directly. In fact, this adnexal mass lesion is labelled as 6 x 4 by the reading radiologist, . DIAGNOSES: Left hydronephrosis, left flank pain. ASSESSMENT AND PLAN: The patient, on the repeat ultrasound, does not show the hydronephrosis, but still looking suspicious that there may be some hydronephrosis. Whether this is from a stone or passed stone or a stone that is not well defined on the CAT scan or whether or not something related to this mass in the ovary or a separate DESIGN ENG issue, possibly even an ovarian torsion. The possibility for the hydronephrosis to be more prominent just not seen well on the ultrasound . From a urology standpoint, we are going to go request a DESIGN ENG consult for an immediate evaluation. From a urology standpoint, with the presence of the hydronephrosis on the CAT scan and the pain, we would plan after DESIGN ENG evaluation to consider a cysto, stent insertion. I agree with some pictures, explained it to the patient. We will await followup and consultation. The possibility also for just pyelonephritis with the patient's history and with her tenderness in the left flank also with history. So, I explained this all to the patient. We are going to increase the pain medicine. We will see how the patient does. The patient is already on antibiotic, has been seen by infectious disease doctor. The possibility for a left pyelonephritis exists. Cultures all pending. Antibiotics were ordered and we will see how the patient does clinically. So, the plan is as follows, 1. Antibiotics, continue. 2. Analgesics. 3. Await DESIGN ENG input. 4. Possible cysto, stent insertion for tomorrow once we have elucidated further details. 5. We will strain the urine in the possibility that this patient has a stone within her urinary bladder, that is just not well visualized. Thank you for the urology consult. Rafa Santacruz MD
--- NOTE | 2018-01-19 13:58 | US ---
Date of service: 01/19/2018 HISTORY: adnexal mass L COMPARISON: CT abdomen and pelvis from 01/18/2018 and pelvic ultrasound from 01/18/2018. TECHNIQUE: Transvaginal pelvic ultrasound was performed. FINDINGS: UTERUS: Measures 11.9 x 4.1 x 5.2 cm. Anteverted and enlarged. There is a 2.1 x 2.8 x 2.3 cm anterior wall intramural fibroid. ENDOMETRIUM: Measures 5.0 mm in diameter. The central endometrial echo complex is normal in appearance. CERVIX: No cervical abnormality identified. RIGHT OVARY: Measures 3.2 x 1.9 x 3.0 cm. No solid mass. Normal flow. LEFT OVARY: There are 2 hypoechoic complex cystic masses with linear echogenic foci measuring 4.8 x 3.2 x 5.3 cm and 4.4 x 3.3 x 4.3 cm in the left adnexa. There is no central flow on color Doppler imaging. Ovary is not distinctly identified. FREE FLUID: No significant free fluid noted. OTHER FINDINGS: None. IMPRESSION: Two complex cystic masses in the left adnexa, the larger measures 4.8 x 3.2 x 5.3 cm, most compatible with hemorrhagic cysts. Follow-up ultrasound 3-6 months interval is recommended to assess stability/resolution. 2.1 x 2.8 x 2.3 cm anterior wall intramural fibroid.
--- NOTE | 2018-01-19 14:20 | CP.PCM.CON ---
History of Present Illness - History of Present Illness History of Present Illness: Surgery Consult note for Dr. Tinsley This is a 32F with no significant past medical history who presented due to back pain that radiates to her stomach that began on Tuesday. The pain is worse on the left. This is the first time she reports an event like this. She is unaware of any fevers at home. Nothing makes it better and deep breaths and position changes make it worse. She denies any pain or blood with urination. She has not had a bowel movement since tuesday however she reports that she usually moves her bowels 1-2 a week. She is passing gas normally. She denies any chest pain or SOB. PMH: Denies PSH: C section X 3 and breast augmentation. ALL: Denies Meds: Denies Social: Denies tobacco, etoh and drugs Review of Systems - Review of Systems All systems: reviewed and no additional remarkable complaints except - Gastrointestinal Gastrointestinal: Abdominal Pain, Nausea, Vomiting - Genitourinary Genitourinary: absent: Change in Urinary Stream, Difficulty Urinating, Dysuria, Hematuria - Musculoskeletal Musculoskeletal: Back Pain Past Patient History - Infectious Disease Hx of Infectious Diseases: None - Past Social History Smoking Status: Never Smoked - CARDIAC Hx Cardiac Disorders: No - PULMONARY Hx Respiratory Disorders: Yes Hx Asthma: Yes - NEUROLOGICAL Hx Neurological Disorder: No - HEENT Hx HEENT Problems: No - RENAL Hx Chronic Kidney Disease: No - ENDOCRINE/METABOLIC Hx Endocrine Disorders: No - HEMATOLOGICAL/ONCOLOGICAL Hx Blood Disorders: No - INTEGUMENTARY Hx Dermatological Problems: No - MUSCULOSKELETAL/RHEUMATOLOGICAL Hx Musculoskeletal Disorders: No - GASTROINTESTINAL Hx Gastrointestinal Disorders: No - GENITOURINARY/GYNECOLOGICAL Hx Genitourinary Disorders: No - PSYCHIATRIC Hx Psychophysiologic Disorder: No Hx Substance Use: No - SURGICAL HISTORY Hx Surgeries: No Meds Allergies/Adverse Reactions: Allergies Allergy/AdvReac Type Severity Reaction Status Date / Time No Known Allergies Allergy Verified 01/17/18 23:38 - Medications Medications: Current Medications Acetaminophen (Tylenol 325mg Tab) 650 mg PO Q6H PRN PRN Reason: Fever >100.4 F Last Admin: 01/18/18 21:14 Dose: 650 mg Sodium Chloride (Sodium Chloride 0.9%) 1,000 mls @ 100 mls/hr IV .Q10H JUAN Last Admin: 01/18/18 05:05 Dose: 100 mls/hr Meropenem (Merrem Iv 1 Gm Premix) 50 mls @ 100 mls/hr IVPB Q8 JUAN PRN Reason: Protocol Last Admin: 01/19/18 11:40 Dose: 100 mls/hr Morphine Sulfate (Morphine) 4 mg IVP Q3H PRN PRN Reason: Pain, severe (8-10) Last Admin: 01/19/18 09:29 Dose: 4 mg Ondansetron HCl (Zofran Inj) 4 mg IVP Q8H PRN PRN Reason: Nausea/Vomiting Stop: 01/22/18 23:59 Last Admin: 01/18/18 05:39 Dose: 4 mg Physical Exam - Constitutional Appears: Well, Non-toxic, No Acute Distress - Head Exam Head Exam: ATRAUMATIC, NORMOCEPHALIC - Eye Exam Eye Exam: EOMI, Normal appearance - ENT Exam ENT Exam: Mucous Membranes Moist - Respiratory Exam Respiratory Exam: NORMAL BREATHING PATTERN - Cardiovascular Exam Cardiovascular Exam: +S1, +S2 - GI/Abdominal Exam GI & Abdominal Exam: Soft, Tenderness. absent: Distended, Firm, Guarding, Hernia - Extremities Exam Extremities exam: Positive for: normal inspection - Back Exam Back exam: CVA tenderness (L), CVA tenderness (R) - Neurological Exam Neurological exam: Alert, Oriented x3 - Psychiatric Exam Psychiatric exam: Normal Affect, Normal Mood - Skin Skin Exam: Dry, Intact Results - Vital Signs Recent Vital Signs: Last Vital Signs Temp 98.8 F 01/19/18 06:00 Pulse 93 H 01/19/18 06:00 Resp 20 01/19/18 06:00 BP 98/58 L 01/19/18 06:00 Pulse Ox 97 01/19/18 06:00 - Labs Result Diagrams: 01/19/18 04:00 01/19/18 04:00 Labs: Laboratory Results - last 24 hr 01/19/18 01/19/18 01/19/18 04:00 04:00 12:00 WBC 9.6 RBC 3.02 L Hgb 9.5 L Hct 28.5 L MCV 94.4 MCH 31.5 MCHC 33.3 RDW 13.0 Plt Count 173 MPV 10.2 Gran % 65.4 Lymph % (Auto) 23.8 [place] % (Auto) 10.6 H Eos % (Auto) 0.1 L Baso % (Auto) 0.1 Gran # 6.26 Lymph # (Auto) 2.3 [place] # (Auto) 1.0 H Eos # (Auto) 0.0 Baso # (Auto) 0.01 Sodium 140 Potassium 3.5 L Chloride 106 Carbon Dioxide 27 Anion Gap 11 BUN 4 L Creatinine 0.5 L Est GFR ( Amer) > 60 Est GFR (Non-Af Amer) > 60 Random Glucose 90 Lactic Acid 0.8 Calcium 8.0 L Phosphorus 2.6 Magnesium 1.9 Total Bilirubin 0.4 AST 13 L D ALT 23 Alkaline Phosphatase 35 L Total Protein 6.1 Albumin 3.1 Globulin 2.9 Albumin/Globulin Ratio 1.1 - Imaging and Cardiology US - abdomen Status: Image reviewed by me, Report reviewed by me CT scan - abdomen Status: Image reviewed by me, Report reviewed by me CT scan - pelvis Status: Image reviewed by me, Report reviewed by me Assessment & Plan - Assessment and Plan (Free Text) Assessment: 32F with back pain likely secondary to pylonephritis UA: + Leukesterase, + Nitrates, + RBC No longer febrile, WBC normalized. Transvaginal U/S Hemmorhagic cyst, Fibroid CT Abd/Pelvis: Mild hydronephrosis/hyrdoureter, no stones, Left adenexal cysts No general surgical managment indicated at this time Recommend TOWER OPERATOR for management of ovarian cyst Continue medical management of urinary tract infection Please reconsult if needed D/W Dr. Laureano Fish PGY3
--- NOTE | 2018-01-19 15:13 | CP.PCM.PN ---
<Marko Lamb - Last Filed: 01/19/18 16:18> Subjective - Date & Time of Evaluation Date of Evaluation: 01/19/18 Time of Evaluation: 15:10 - Subjective Subjective: Marko Lamb PGY1 Progress Note for Dr. Hdez Ms. Hooker was examined at bedside today. She reports continuation of her abdominal pain, without adequate coverage with her current pain regimen. She reports that it is worse when she moves her left leg. She denies any dizziness, shortness of breath, chest pain, nausea, vomiting, diarrhea, or dysuria. Objective - Vital Signs/Intake and Output Vital Signs (last 24 hours): Temp Pulse Resp BP Pulse Ox 98.8 F 93 H 20 98/58 L 97 01/19/18 06:00 01/19/18 06:00 01/19/18 06:00 01/19/18 06:00 01/19/18 06:00 Intake and Output: 01/19/18 01/19/18 06:59 18:59 Intake Total 360 240 Output Total 300 Balance 360 -60 - Medications Medications: Current Medications Acetaminophen (Tylenol 325mg Tab) 650 mg PO Q6H PRN PRN Reason: Fever >100.4 F Last Admin: 01/18/18 21:14 Dose: 650 mg Sodium Chloride (Sodium Chloride 0.9%) 1,000 mls @ 100 mls/hr IV .Q10H JUAN Last Admin: 01/18/18 05:05 Dose: 100 mls/hr Meropenem (Merrem Iv 1 Gm Premix) 50 mls @ 100 mls/hr IVPB Q8 JUAN PRN Reason: Protocol Last Admin: 01/19/18 11:40 Dose: 100 mls/hr Morphine Sulfate (Morphine) 4 mg IVP Q3H PRN PRN Reason: Pain, severe (8-10) Last Admin: 01/19/18 09:29 Dose: 4 mg Ondansetron HCl (Zofran Inj) 4 mg IVP Q8H PRN PRN Reason: Nausea/Vomiting Stop: 01/22/18 23:59 Last Admin: 01/18/18 05:39 Dose: 4 mg - Labs Labs: 01/19/18 04:00 01/19/18 04:00 - Constitutional Appears: In Acute Distress - Head Exam Head Exam: ATRAUMATIC, NORMOCEPHALIC - Eye Exam Eye Exam: EOMI, Normal appearance, PERRL - ENT Exam ENT Exam: Mucous Membranes Moist - Respiratory Exam Respiratory Exam: Clear to Ausculation Bilateral, NORMAL BREATHING PATTERN. absent: Rales, Rhonchi, Wheezes, Respiratory Distress - Cardiovascular Exam Cardiovascular Exam: REGULAR RHYTHM, +S1, +S2 - GI/Abdominal Exam GI & Abdominal Exam: Soft, Tenderness, Normal Bowel Sounds. absent: Distended, Firm, Guarding Additional comments: tenderness to palpation of left upper quadrant and left lower quadrant. + suprapubic tenderness - Extremities Exam Extremities Exam: Normal Inspection. absent: Pedal Edema, Tenderness - Neurological Exam Neurological Exam: Alert, Awake, Oriented x3 - Skin Skin Exam: Normal Color Assessment and Plan - Assessment and Plan (Free Text) Assessment: 32 y/o female with no PMH presents to ED with 3 days h/o bilateral flank pain that's worse on the left side, admitted for possible pyelonephritis. Plan: Bilateral flank pain - CT abdomen/pelvis (01/18): mild left hydronephrosis , no stones. possibly passed stone - possible etiology: pylonephritis vs nephrolithiasis vs. hydronephrosis vs. ovarian torsion - Tmax (01/18) 100.9, afebrile today - WBC (01/19) 9.6 - UA: turbid, +nitrate,+leukocyte esterase and many bacteria - given morphine 4 mg, patient reports not adequate - start dilaudid 0.5mg - tylenol 600mg q6 PRN for fever - CXR: no active disease - TVUS: 2 complex cysts in L adnexa most likely hemorrhagic cysts. f/u US 3- 6mos recommended - Renal US: unremarkable - start meropenem 1g IV q8, as per ID - ceftriaxone 1 gm q24h - contiue IVF: NS@100/HR - strain urine for stones, as per uro - Gen Sx consulted, Dr. Tinsley: no sx intervention recommended at this time - ID consulted, Dr. Thomas perez appreciated - Uro consulted, Dr. Santacruz: continue antibiotics and analgesics, possible cysto, stent insertion for tomorrow Complex adnexal mass - CT: 6.2 cm left adenexal mass - TVUS: 2 complex cysts in L adnexa most likely hemorrhagic cysts. f/u US 3- 6mos recommended - OBGYN consulted: recommends f/u outpatient Anemia - MCV normocytic range, H/H 9.5 28.9 - Fe study FE,TIBC, Ferritin pending - B12, Folate pending - FOBT pending - monitor closely daily CBC Prophylaxis: DVT ppx SCD GI ppx protonix Case reviewed and discussed with Dr. Hdez <Lesli Hdez - Last Filed: 01/21/18 13:03> Objective - Vital Signs/Intake and Output Vital Signs (last 24 hours): Temp Pulse Resp BP Pulse Ox 98.7 F 82 20 109/72 98 01/21/18 07:48 01/21/18 07:48 01/21/18 07:48 01/21/18 07:48 01/21/18 07:48 Intake and Output: 01/21/18 01/21/18 06:59 18:59 Intake Total 780 Balance 780 - Medications Medications: Current Medications Acetaminophen (Tylenol 325mg Tab) 650 mg PO Q6H PRN PRN Reason: Fever >100.4 F Last Admin: 01/18/18 21:14 Dose: 650 mg Hydromorphone HCl (Dilaudid) 0.5 mg IVP Q6H PRN PRN Reason: Pain, severe (8-10) Last Admin: 01/21/18 12:01 Dose: 0.5 mg Ceftriaxone Sodium (Rocephin 1 Gram Ivpb) 1 gm in 100 mls @ 100 mls/hr IVPB DAILY JUAN PRN Reason: Protocol Last Admin: 01/21/18 09:42 Dose: 100 mls/hr Morphine Sulfate (Morphine) 4 mg IVP Q3H PRN PRN Reason: Pain, severe (8-10) Last Admin: 01/20/18 09:10 Dose: 4 mg Ondansetron HCl (Zofran Inj) 4 mg IVP Q8H PRN PRN Reason: Nausea/Vomiting Stop: 01/22/18 23:59 Last Admin: 01/18/18 05:39 Dose: 4 mg Ondansetron HCl (Zofran Inj) 4 mg IVP ONCE PRN PRN Reason: Nausea/Vomiting Oxycodone/Acetaminophen (Percocet 5/325 Mg Tab) 1 tab PO Q6H PRN PRN Reason: Pain, moderate (4-7) Stop: 01/23/18 00:16 Last Admin: 01/20/18 00:27 Dose: 1 tab - Labs Labs: 01/21/18 03:55 01/21/18 03:55 Attending/Attestation - Attestation I have personally seen and examined this patient.: Yes I have fully participated in the care of the patient.: Yes I have reviewed all pertinent clinical information, including history, physical exam and plan: Yes Notes (Text): 01/21/18 13:00 Attending note; Patient seen and examined with resident. Patient is a 32-year-old female admitted with fevers and flank pain. CT abdomen and pelvis showed left-sided hydronephrosis and also ovarian cyst. Pelvic ultrasound showed complex left adnexal mass. Currently patient has fevers and chills and urinary symptoms. With a positive urinalysis for infection. Case reviewed with HAND STAP[employer]ER Dr. Gee in detail. No acute ovarian torsion. No acute gynecological intervention needed at this point. Needs outpatient follow-up for ovarian cyst. Case discussed with Dr. Santacruz urologist in detail.Patient will go for ureteroscopy and possible stent placement. Case discussed with surgery in detail. Case discussed with ID Dr. tarango in detail. Patient is started on IV Rocephin initially. Currently on IV meropenem. Monitor closely. The diagnosis and follow-up plan discussed with patient and in detail.
[2018-01-19] MEDS ORDERED: HYDROmorphone 0.5 mg/0.5 ml ISec IVP PRN (16:01)
[2018-01-19] MEDS ORDERED: Propofol 10 mg/ml Inj (20 ML) ONE (16:04)
[2018-01-19] MEDS ORDERED: Midazolam 2 MG/2 ML VIAL ONE (16:05)
[2018-01-19] MEDS ORDERED: Lactated Ringer's 1,000 ML IV SCH (16:15)
[2018-01-19] MEDS ORDERED: Sevoflurane - Inhalation Anesthetic Liq (250 ml) ONE (17:25)
[2018-01-19] MEDS: Sodium Chloride 0.9% 1,000 ML IV SCH (22:13)
[2018-01-20] MEDS: Oxycodone/Acetaminophen 5/325 mg Tab PO PRN (00:27)
[2018-01-20] MEDS: Morphine 4 mg/ml ISec IVP PRN ×3 (01:08→09:10)
[2018-01-20] MEDS: Meropenem IV 1 gm in NS 50 ML IVPB SCH (05:15)
[2018-01-20 07:06] LABS: BASO # 0.01 K/mm3 (0.0-2.0); BASO % 0.1 % (0.0-3.0); EOS % 0.3 % (1.5-5.0); GRAN # 4.82 (1.4-6.5); GRAN % 63.7 % (50.0-68.0); HEMOGLOBIN 8.9 g/dL (12.0-16.0); LYMPH % 26.1 % (22.0-35.0); MEAN CELL VOLUME 93.1 fl (80.0-105.0); MEAN CORPUSCULAR HEMOGLOBIN 30.7 pg (25.0-35.0); MEAN PLATELET VOLUME 10.7 fl (7.0-11.0); MONO # 0.7 (0.1-0.6); MONO % 9.8 % (1.0-6.0); RBC 2.9 10^6/uL (3.5-6.1); RED CELL DISTRIBUTION WIDTH 12.6 % (11.5-14.5); WHITE BLOOD COUNT 7.6 10^3/ul (4.5-11.0)
[2018-01-20 07:43] LABS: ALT/SGPT 26 U/L (7-56); AST/SGOT 14 U/L (14-36); BLOOD UREA NITROGEN 5 mg/dL (7-21); CALCIUM 8.3 mg/dL (8.4-10.5); GFR AFRICAN-AMERICAN > 60; GFR NON-AFRICAN AMERICAN > 60
--- NOTE | 2018-01-20 08:04 | PCM.URO ---
Urology Progress Note - Objective Lab Studies: Reviewed (gu plans : motrin round the clock mom til bm antibiotics per id full note to be dictated) Lab Results Last 24 Hours: Laboratory Results - last 24 hr 01/18/18 01/19/18 01/20/18 06:45 12:00 06:20 WBC 7.6 D RBC 2.90 L Hgb 8.9 L Hct 27.0 L MCV 93.1 MCH 30.7 MCHC 33.0 RDW 12.6 Plt Count 182 MPV 10.7 Gran % 63.7 Lymph % (Auto) 26.1 [place] % (Auto) 9.8 H Eos % (Auto) 0.3 L Baso % (Auto) 0.1 Gran # 4.82 Lymph # (Auto) 2.0 [place] # (Auto) 0.7 H Eos # (Auto) 0.0 Baso # (Auto) 0.01 Sodium Potassium Chloride Carbon Dioxide Anion Gap BUN Creatinine Est GFR ( Amer) Est GFR (Non-Af Amer) Random Glucose Lactic Acid 0.8 Calcium Phosphorus Magnesium Total Bilirubin AST ALT Alkaline Phosphatase Total Protein Albumin Globulin Albumin/Globulin Ratio HIV 1&2 Ag/Ab, 4th Gen Nonreactive 01/20/18 06:20 WBC RBC Hgb Hct MCV MCH MCHC RDW Plt Count MPV Gran % Lymph % (Auto) [place] % (Auto) Eos % (Auto) Baso % (Auto) Gran # Lymph # (Auto) [place] # (Auto) Eos # (Auto) Baso # (Auto) Sodium 138 Potassium 3.9 Chloride 106 Carbon Dioxide 25 Anion Gap 10 BUN 5 L Creatinine 0.5 L Est GFR ( Amer) > 60 Est GFR (Non-Af Amer) > 60 Random Glucose 76 Lactic Acid Calcium 8.3 L Phosphorus 2.5 Magnesium 2.0 Total Bilirubin 0.3 AST 14 ALT 26 Alkaline Phosphatase 38 Total Protein 6.0 Albumin 3.0 Globulin 3.0 Albumin/Globulin Ratio 1.0 L HIV 1&2 Ag/Ab, 4th Gen Intake & Output: Intake & Output 01/19/18 01/20/18 01/20/18 18:59 06:59 18:59 Intake Total 340 Output Total 300 Balance 40 Intake: IV 100 Oral 240 Output: Urine 300 Urine, Voided 300 Other: # Bowel Movements 0 Vital Signs: Vital Signs - 24 hr 01/19/18 01/19/18 01/19/18 14:00 16:38 17:50 Temperature 98.5 F 98.6 F 98.2 F Pulse Rate 90 92 H 86 Respiratory 18 20 19 Rate Blood Pressure 105/67 104/69 80/45 L O2 Sat by Pulse 98 99 99 Oximetry 01/19/18 01/19/18 01/19/18 18:05 18:20 19:48 Temperature 98.2 F 98.2 F Pulse Rate 82 87 90 Respiratory 17 18 Rate Blood Pressure 94/58 L 92/59 L 105/57 L O2 Sat by Pulse 99 99 Oximetry 01/19/18 01/20/18 22:10 06:00 Temperature 98 F 98.4 F Pulse Rate 93 H 82 Respiratory 18 18 Rate Blood Pressure 104/73 100/60 O2 Sat by Pulse 95 96 Oximetry
[2018-01-20] MEDS: Sodium Chloride 0.9% 1,000 ML IV SCH ×2 (09:15→20:28)
--- NOTE | 2018-01-20 09:19 | CP.PCM.PN ---
<Marko Lamb - Last Filed: 01/20/18 12:31> Subjective - Date & Time of Evaluation Date of Evaluation: 01/20/18 Time of Evaluation: 09:16 - Subjective Subjective: Marko Lamb PGY1 Progress note for Dr. Hdez Ms. Hooker was examined at bedside this morning. She continues to complain of left sided flank pain. She also complains of dysuria from the lower abdominal region radiating up to the back on the left side. She also reports blood in her urine that she describes as clots. She also reports constipation, last BM last week. She says she is constipated at her baseline. She denies any nausea or vomiting, and is able to tolerate food. She denies dizziness, shortness of breath, chest pain, diarrhea, numbness or tingling. Objective - Vital Signs/Intake and Output Vital Signs (last 24 hours): Temp Pulse Resp BP Pulse Ox 98.4 F 82 18 100/60 96 01/20/18 06:00 01/20/18 06:00 01/20/18 06:00 01/20/18 06:00 01/20/18 06:00 - Medications Medications: Current Medications Acetaminophen (Tylenol 325mg Tab) 650 mg PO Q6H PRN PRN Reason: Fever >100.4 F Last Admin: 01/18/18 21:14 Dose: 650 mg Sodium Chloride (Sodium Chloride 0.9%) 1,000 mls @ 100 mls/hr IV .Q10H [facility] Last Admin: 01/19/18 22:13 Dose: 100 mls/hr Meropenem (Merrem Iv 1 Gm Premix) 50 mls @ 100 mls/hr IVPB Q8 JUAN PRN Reason: Protocol Last Admin: 01/20/18 05:15 Dose: 100 mls/hr Morphine Sulfate (Morphine) 4 mg IVP Q3H PRN PRN Reason: Pain, severe (8-10) Last Admin: 01/20/18 09:10 Dose: 4 mg Ondansetron HCl (Zofran Inj) 4 mg IVP Q8H PRN PRN Reason: Nausea/Vomiting Stop: 01/22/18 23:59 Last Admin: 01/18/18 05:39 Dose: 4 mg Ondansetron HCl (Zofran Inj) 4 mg IVP ONCE PRN PRN Reason: Nausea/Vomiting Oxycodone/Acetaminophen (Percocet 5/325 Mg Tab) 1 tab PO Q6H PRN PRN Reason: Pain, moderate (4-7) Stop: 01/23/18 00:16 Last Admin: 01/20/18 00:27 Dose: 1 tab - Labs Labs: 01/20/18 06:20 01/20/18 06:20 - Constitutional Appears: In Acute Distress - Head Exam Head Exam: ATRAUMATIC, NORMOCEPHALIC - Eye Exam Eye Exam: EOMI, PERRL - ENT Exam ENT Exam: Mucous Membranes Moist - Respiratory Exam Respiratory Exam: Clear to Ausculation Bilateral, NORMAL BREATHING PATTERN. absent: Rhonchi, Wheezes, Stridor - Cardiovascular Exam Cardiovascular Exam: REGULAR RHYTHM, +S1, +S2. absent: Gallop, Irregular Rhythm , Rubs - GI/Abdominal Exam GI & Abdominal Exam: Soft, Tenderness, Normal Bowel Sounds. absent: Distended, Firm, Guarding Additional comments: tenderness in left lower quadrant. - Extremities Exam Extremities Exam: Normal Inspection. absent: Pedal Edema, Tenderness - Back Exam Back Exam: CVA tenderness (L) - Neurological Exam Neurological Exam: Alert, Awake, Oriented x3 - Psychiatric Exam Psychiatric exam: Normal Affect, Normal Mood - Skin Skin Exam: Normal Color Assessment and Plan - Assessment and Plan (Free Text) Assessment: 32 y/o female with no PMH presents to ED with 3 days h/o bilateral flank pain that's worse on the left side, admitted for possible pyelonephritis. Plan: Bilateral flank pain - CT abdomen/pelvis (01/18): mild left hydronephrosis , no stones. possibly passed stone - possible etiology: pylonephritis vs nephrolithiasis vs. hydronephrosis - s/p cystoscopy and L pigtail stent placement POD#1 - today pt complains of hematuria - Tmax (01/18) 100.9, afebrile past 24 hrs - WBC (10) 7.6 - UCx: E.coli, CFU>100,000, sensitive to merem - started dilaudid 0.5 q6 PRN severe pain - tylenol 600mg q6 PRN for fever - continue meropenem 1g IV q8, as per ID - contiue IVF: LR@75/HR - CXR: no active disease - Renal US: unremarkable - strain urine: some sediment visible - Gen Sx consulted, Dr. Tinsley: no sx intervention recommended at this time - ID consulted, Dr. Thomas perez appreciated - Uro consulted, Dr. Santacruz: recs appreciated Complex adnexal mass - CT: 6.2 cm left adenexal mass - TVUS: 2 complex cysts in L adnexa most likely hemorrhagic cysts. f/u US 3- 6mos recommended - OBGYN consulted: recommends f/u outpatient Anemia - MCV normocytic range, H/H 8.9 27.0 - like decreasing due to hematuria - Fe study FE, TIBC, Ferritin pending - B12, Folate pending - FOBT pending - monitor closely daily CBC Constipation - last BM last week, pt reports constipation at baseline - likely secondary to pain medication - start miralax Prophylaxis: DVT ppx SCD GI ppx protonix Case reviewed and discussed with Dr. Hdez <Lesli Hdez - Last Filed: 01/21/18 13:09> Objective - Vital Signs/Intake and Output Vital Signs (last 24 hours): Temp Pulse Resp BP Pulse Ox 98.7 F 82 20 109/72 98 01/21/18 07:48 01/21/18 07:48 01/21/18 07:48 01/21/18 07:48 01/21/18 07:48 Intake and Output: 01/21/18 01/21/18 06:59 18:59 Intake Total 780 Balance 780 - Medications Medications: Current Medications Acetaminophen (Tylenol 325mg Tab) 650 mg PO Q6H PRN PRN Reason: Fever >100.4 F Last Admin: 01/18/18 21:14 Dose: 650 mg Hydromorphone HCl (Dilaudid) 0.5 mg IVP Q6H PRN PRN Reason: Pain, severe (8-10) Last Admin: 01/21/18 12:01 Dose: 0.5 mg Ceftriaxone Sodium (Rocephin 1 Gram Ivpb) 1 gm in 100 mls @ 100 mls/hr IVPB DAILY JUAN PRN Reason: Protocol Last Admin: 01/21/18 09:42 Dose: 100 mls/hr Morphine Sulfate (Morphine) 4 mg IVP Q3H PRN PRN Reason: Pain, severe (8-10) Last Admin: 01/20/18 09:10 Dose: 4 mg Ondansetron HCl (Zofran Inj) 4 mg IVP Q8H PRN PRN Reason: Nausea/Vomiting Stop: 01/22/18 23:59 Last Admin: 01/18/18 05:39 Dose: 4 mg Ondansetron HCl (Zofran Inj) 4 mg IVP ONCE PRN PRN Reason: Nausea/Vomiting Oxycodone/Acetaminophen (Percocet 5/325 Mg Tab) 1 tab PO Q6H PRN PRN Reason: Pain, moderate (4-7) Stop: 01/23/18 00:16 Last Admin: 01/20/18 00:27 Dose: 1 tab - Labs Labs: 01/21/18 03:55 01/21/18 03:55 Attending/Attestation - Attestation I have personally seen and examined this patient.: Yes I have fully participated in the care of the patient.: Yes I have reviewed all pertinent clinical information, including history, physical exam and plan: Yes Notes (Text): 01/21/18 13:05 Attending note; Patient seen and examined with resident. Patient is a 32-year-old female admitted with fevers and flank pain. Acute left pyelonephritis. CT abdomen and pelvis showed left-sided hydronephrosis. Status post cystoscopy and ureteral stent placement. Currently patient complaining of frequent urination and mild hematuria. Monitor closely. Fevers resolving. Escherichia coli UTI. Started on Rocephin. Ovarian cyst /hemorrhagic sit cyst ; needs outpatient evaluation . Monitor closely. The diagnosis and follow-up plan discussed with patient and in detail. 01/21/18 13:08
--- NOTE | 2018-01-20 10:24 | RAD ---
Date of service: 01/19/2018 PROCEDURE: Fluoroscopy up to 1 hour HISTORY: LEFT HYDRONEPHROSIS / STENT INSERTION / RETROGRADE PYELOGRAM (LEFT) COMPARISON: TECHNIQUE: 3.8 seconds of fluoro time. 1.74 mGy cumulative dose. 8 images were submitted FINDINGS: The study shows placement of a left ureteral stent IMPRESSION: As above
[2018-01-20] MEDS ORDERED: POLYETHYLENE GLYCOL 3350 17 GM/Dose PACKET PO ONE (11:30)
[2018-01-20] MEDS: HYDROmorphone 0.5 mg/0.5 ml ISec IVP PRN ×3 (12:25→23:56)
--- NOTE | 2018-01-20 13:19 | CP.PCM.PN ---
<Amy Pollard - Last Filed: 01/20/18 13:17> Subjective - Date & Time of Evaluation Date of Evaluation: 01/20/18 Time of Evaluation: 09:00 - Subjective Subjective: PGY-3 infectious disease progress note for Dr. Guzman Patient seen and examined at bedside. Patient reports 8/10 pain in her flank. Yesterday patient went for cystoscopy with pigtail stent. Patient denies any fever, chills, chest pain, n/v. Objective - Vital Signs/Intake and Output Vital Signs (last 24 hours): Temp Pulse Resp BP Pulse Ox 98.4 F 82 18 100/60 96 01/20/18 06:00 01/20/18 06:00 01/20/18 06:00 01/20/18 06:00 01/20/18 06:00 - Medications Medications: Current Medications Acetaminophen (Tylenol 325mg Tab) 650 mg PO Q6H PRN PRN Reason: Fever >100.4 F Last Admin: 01/18/18 21:14 Dose: 650 mg Hydromorphone HCl (Dilaudid) 0.5 mg IVP Q6H PRN PRN Reason: Pain, severe (8-10) Last Admin: 01/20/18 12:25 Dose: 0.5 mg Sodium Chloride (Sodium Chloride 0.9%) 1,000 mls @ 100 mls/hr IV .Q10H JUAN Last Admin: 01/20/18 09:15 Dose: 100 mls/hr Ceftriaxone Sodium (Rocephin 1 Gram Ivpb) 1 gm in 100 mls @ 100 mls/hr IVPB DAILY JUAN PRN Reason: Protocol Morphine Sulfate (Morphine) 4 mg IVP Q3H PRN PRN Reason: Pain, severe (8-10) Last Admin: 01/20/18 09:10 Dose: 4 mg Ondansetron HCl (Zofran Inj) 4 mg IVP Q8H PRN PRN Reason: Nausea/Vomiting Stop: 01/22/18 23:59 Last Admin: 01/18/18 05:39 Dose: 4 mg Ondansetron HCl (Zofran Inj) 4 mg IVP ONCE PRN PRN Reason: Nausea/Vomiting Oxycodone/Acetaminophen (Percocet 5/325 Mg Tab) 1 tab PO Q6H PRN PRN Reason: Pain, moderate (4-7) Stop: 01/23/18 00:16 Last Admin: 01/20/18 00:27 Dose: 1 tab - Labs Labs: 01/20/18 06:20 01/20/18 06:20 - Constitutional Appears: In Acute Distress - Head Exam Head Exam: ATRAUMATIC, NORMAL INSPECTION, NORMOCEPHALIC - Eye Exam Eye Exam: Normal appearance - ENT Exam ENT Exam: Mucous Membranes Moist - Respiratory Exam Respiratory Exam: Clear to Ausculation Bilateral, NORMAL BREATHING PATTERN. absent: Rhonchi, Wheezes, Respiratory Distress - Cardiovascular Exam Cardiovascular Exam: REGULAR RHYTHM, +S1, +S2. absent: Bradycardia, Tachycardia , Murmur - GI/Abdominal Exam GI & Abdominal Exam: Soft, Tenderness, Normal Bowel Sounds. absent: Distended, Firm, Guarding - Extremities Exam Extremities Exam: Normal Inspection. absent: Pedal Edema, Tenderness - Neurological Exam Neurological Exam: Alert, Awake, Oriented x3 - Skin Skin Exam: Dry, Intact, Normal Color, Warm Assessment and Plan - Assessment and Plan (Free Text) Assessment: 32 yo female with PMH of asthma presented with bilateral flank pain most likely due to nephrolithiasis with sepsis secondary to pyelonephritis. Patient was afebrile overnight. urine cultures postive for e. coli, will start ceftriaxone and discontinue meropenum. Renal US showed no acute findings. pelvic US showed septated complex cyst left adnexa. HIV nonreactive. Blood cultures showed no growth. case reviewed and discussed with attending, Dr. Guzman <Jassi Guzman - Last Filed: 01/20/18 17:33> Objective - Vital Signs/Intake and Output Vital Signs (last 24 hours): Temp Pulse Resp BP Pulse Ox 98.4 F 78 18 117/79 98 01/20/18 14:00 01/20/18 14:00 01/20/18 14:00 01/20/18 14:00 01/20/18 14:00 Intake and Output: 01/20/18 01/20/18 06:59 18:59 Intake Total 720 Output Total 700 Balance 20 - Medications Medications: Current Medications Acetaminophen (Tylenol 325mg Tab) 650 mg PO Q6H PRN PRN Reason: Fever >100.4 F Last Admin: 01/18/18 21:14 Dose: 650 mg Hydromorphone HCl (Dilaudid) 0.5 mg IVP Q6H PRN PRN Reason: Pain, severe (8-10) Last Admin: 01/20/18 12:25 Dose: 0.5 mg Sodium Chloride (Sodium Chloride 0.9%) 1,000 mls @ 100 mls/hr IV .Q10H JUAN Last Admin: 01/20/18 09:15 Dose: 100 mls/hr Ceftriaxone Sodium (Rocephin 1 Gram Ivpb) 1 gm in 100 mls @ 100 mls/hr IVPB DAILY JUAN PRN Reason: Protocol Morphine Sulfate (Morphine) 4 mg IVP Q3H PRN PRN Reason: Pain, severe (8-10) Last Admin: 01/20/18 09:10 Dose: 4 mg Ondansetron HCl (Zofran Inj) 4 mg IVP Q8H PRN PRN Reason: Nausea/Vomiting Stop: 01/22/18 23:59 Last Admin: 01/18/18 05:39 Dose: 4 mg Ondansetron HCl (Zofran Inj) 4 mg IVP ONCE PRN PRN Reason: Nausea/Vomiting Oxycodone/Acetaminophen (Percocet 5/325 Mg Tab) 1 tab PO Q6H PRN PRN Reason: Pain, moderate (4-7) Stop: 01/23/18 00:16 Last Admin: 01/20/18 00:27 Dose: 1 tab - Labs Labs: 01/20/18 06:20 01/20/18 06:20 Assessment and Plan - Assessment and Plan (Free Text) Assessment: Infectious Diseases Attending Physician Addendum Patient seen and examined, discussed with medical accounting clerk. I have reviewed the pertinent clinical information for the patient, including history of present illness, medical, personal and social histories, lab results and imaging findings. I agree with the above findings, assessment and plan. In addition, will continue the patient on Rocephin for this patient with sepsis with E. coli left sided pyelonephritis. Follow up [employer] Technician follow up on ovarian cyst.
[2018-01-21 04:08] LABS: BASO # 0.01 K/mm3 (0.0-2.0); BASO % 0.2 % (0.0-3.0); EOS # 0.1 (0.0-0.7); EOS % 1.7 % (1.5-5.0); GRAN # 2.56 (1.4-6.5); HEMOGLOBIN 8.7 g/dL (12.0-16.0); LYMPH # 2.2 (1.2-3.4); LYMPH % 40.4 % (22.0-35.0); MEAN CELL VOLUME 92.5 fl (80.0-105.0); MEAN CORPUSCULAR HGB CONC 33.5 g/dl (31.0-37.0); MEAN PLATELET VOLUME 10.4 fl (7.0-11.0); MONO # 0.6 (0.1-0.6); MONO % 10.7 % (1.0-6.0); RBC 2.81 10^6/uL (3.5-6.1); RED CELL DISTRIBUTION WIDTH 12.4 % (11.5-14.5); WHITE BLOOD COUNT 5.4 10^3/ul (4.5-11.0)
[2018-01-21 04:31] LABS: ALT/SGPT 26 U/L (7-56); AST/SGOT 16 U/L (14-36); BLOOD UREA NITROGEN 3 mg/dL (7-21); CALCIUM 8.4 mg/dL (8.4-10.5); GFR AFRICAN-AMERICAN > 60; GFR NON-AFRICAN AMERICAN > 60
[2018-01-21] MEDS: HYDROmorphone 0.5 mg/0.5 ml ISec IVP PRN ×3 (05:33→18:02)
[2018-01-21] MEDS ORDERED: Potassium Chloride 20 mEq ER Tab PO ONE (07:38)
[2018-01-21] MEDS: cefTRIAXone 1 gm 1 GM/100 ML BAG IVPB SCH (09:42)
--- NOTE | 2018-01-21 12:19 | CP.PCM.PN ---
<Camila Tabares - Last Filed: 01/21/18 16:18> Subjective - Date & Time of Evaluation Date of Evaluation: 01/21/18 Time of Evaluation: 12:15 - Subjective Subjective: Camila Tabares, Internal Medicine Progress Note for Dr. Hdez Patient seen and examined this morning. No overnight events. Patient reports flank pain, dysuria, and hematuria. Patient denies chest pain, heart palpitations, shortness of breath, nausea, vomiting, constipation, and diarrhea. Objective - Vital Signs/Intake and Output Vital Signs (last 24 hours): Temp Pulse Resp BP Pulse Ox 98.7 F 82 20 109/72 98 01/21/18 07:48 01/21/18 07:48 01/21/18 07:48 01/21/18 07:48 01/21/18 07:48 Intake and Output: 01/21/18 01/21/18 06:59 18:59 Intake Total 780 Balance 780 - Medications Medications: Current Medications Acetaminophen (Tylenol 325mg Tab) 650 mg PO Q6H PRN PRN Reason: Fever >100.4 F Last Admin: 01/18/18 21:14 Dose: 650 mg Hydromorphone HCl (Dilaudid) 0.5 mg IVP Q6H PRN PRN Reason: Pain, severe (8-10) Last Admin: 01/21/18 12:01 Dose: 0.5 mg Ceftriaxone Sodium (Rocephin 1 Gram Ivpb) 1 gm in 100 mls @ 100 mls/hr IVPB DAILY JUAN PRN Reason: Protocol Last Admin: 01/21/18 09:42 Dose: 100 mls/hr Morphine Sulfate (Morphine) 4 mg IVP Q3H PRN PRN Reason: Pain, severe (8-10) Last Admin: 01/20/18 09:10 Dose: 4 mg Ondansetron HCl (Zofran Inj) 4 mg IVP Q8H PRN PRN Reason: Nausea/Vomiting Stop: 01/22/18 23:59 Last Admin: 01/18/18 05:39 Dose: 4 mg Ondansetron HCl (Zofran Inj) 4 mg IVP ONCE PRN PRN Reason: Nausea/Vomiting Oxycodone/Acetaminophen (Percocet 5/325 Mg Tab) 1 tab PO Q6H PRN PRN Reason: Pain, moderate (4-7) Stop: 01/23/18 00:16 Last Admin: 01/20/18 00:27 Dose: 1 tab - Labs Labs: 01/21/18 03:55 01/21/18 03:55 - Constitutional Appears: Well, Non-toxic - Head Exam Head Exam: ATRAUMATIC, NORMOCEPHALIC - Eye Exam Eye Exam: EOMI, PERRL - Respiratory Exam Respiratory Exam: Clear to Ausculation Bilateral, NORMAL BREATHING PATTERN - Cardiovascular Exam Cardiovascular Exam: RRR - GI/Abdominal Exam GI & Abdominal Exam: Soft, Normal Bowel Sounds - Back Exam Back Exam: CVA tenderness (L), CVA tenderness (R) - Neurological Exam Neurological Exam: Alert, CN II-XII Intact, Oriented x3 Neuro motor strength exam: Left Upper Extremity: 5, Right Upper Extremity: 5, Left Lower Extremity: 5, Right Lower Extremity: 5 - Psychiatric Exam Psychiatric exam: Normal Affect, Normal Mood - Skin Skin Exam: Dry, Intact, Warm Assessment and Plan - Assessment and Plan (Free Text) Assessment: 32 year old female with no past medical history presents to the emergency department with 3 days history of bilateral flank pain that is worse on the left side. Plan: Bilateral Flank Pain 2/2 to Pyelonephritis vs. hemorrhagic ovarian cyst -CT abdomen (01/18): left hydroureter/hydronephrosis likely due to recently passed or non visible calculi. Left adnexal cysts. -Pelvis Ultrasounds (01/18): septated mass/ complex cyst left adnexa corresponding to findings on recent CT scan -Renal Ultrasound (01/18): unremarkable renal sonogram -Urine analysis (01/18): moderate blood, positive nitrite, large leukocyte esterase, 1.0 urobilinogen, 30 protein, 1-3 urine RBC, many urine WBCs, and many bacteria. -Transvaginal Ultrasound (01/19): two complex cystic masses in the left adnexa. Larger mass is 4.8x3.2x5.3, most compatible with hemorrhagic cysts. 2.1x2.8x2.3 anterior wall intramural fibroid. -Left ureteral stent placed by surgery, as per recommended by urology. -Continue to strain urine. -Patient given 2 doses of ceftriaxone 1 gm from 01/18-01/19. Patient given meropenem 1 g Q8 on 01/19. Patient restarted on ceftriaxone 1 gm starting 01/21. Patient on day 4 of antibiotics. -Patient continued on oxycodone/acetaminophen 1 tab PO Q6 PRN, hydromorphone 0.5 mg IVP Q6 PRN for pain -Zofran 4 mg IVP Q8 PRN -Acetaminophen 650 mg Q6 PRN for fever -Infectious Disease, Dr. Guzman, consulted. Follow recommendations. -Urology, Dr. Santacruz, consulted. Follow recommendations. -Follow up with [employer] Dr[employer] Operator outpatient for hemorrhagic ovarian cyst as per ID and urology. -Stent to be removed Tuesday. Normocytic Anemia -Hemoglobin: 8.7 on 01/21. Baseline is unknown since this patient's first admission. Hemoglobin has been trending down from admission, which started at 11.2. -Continue to monitor. Hypokalemia -Potassium: 3.5 01/21 -Patient was given one dose of 20 meq of potassium chloride once. Hypophosphatemia -Phosphate: 2.2 on 01/21 -Patient was ordered 15 meq of potassium phosphate once. Disposition -Stent removal Tuesday -Patient should follow up with [employer] Operator and PCP outpatient for hemorrhagic cyst. -Patient should complete full course of antibiotics. Patient seen and examined with Dr. Hdez <Lesli Hdez - Last Filed: 01/22/18 14:44> Objective - Vital Signs/Intake and Output Vital Signs (last 24 hours): Temp Pulse Resp BP Pulse Ox 98.4 F 68 20 113/76 99 01/22/18 07:58 01/22/18 07:58 01/22/18 07:58 01/22/18 07:58 01/22/18 07:58 Intake and Output: 01/22/18 01/22/18 06:59 18:59 Intake Total 720 Output Total 2175 Balance -1455 - Medications Medications: Current Medications Acetaminophen (Tylenol 325mg Tab) 650 mg PO Q6H PRN PRN Reason: Fever >100.4 F Last Admin: 01/18/18 21:14 Dose: 650 mg Docusate Sodium (Colace Liquid) 100 mg PO TID [facility] [place] Last Admin: 01/22/18 13:32 Dose: Not Given Hydromorphone HCl (Dilaudid) 0.5 mg IVP Q6H PRN PRN Reason: Pain, severe (8-10) Last Admin: 01/22/18 11:01 Dose: 0.5 mg Ceftriaxone Sodium (Rocephin 1 Gram Ivpb) 1 gm in 100 mls @ 100 mls/hr IVPB DAILY JUAN PRN Reason: Protocol Last Admin: 01/22/18 09:31 Dose: 100 mls/hr Morphine Sulfate (Morphine) 4 mg IVP Q3H PRN PRN Reason: Pain, severe (8-10) Last Admin: 01/20/18 09:10 Dose: 4 mg Ondansetron HCl (Zofran Inj) 4 mg IVP Q8H PRN PRN Reason: Nausea/Vomiting Stop: 01/22/18 23:59 Last Admin: 01/18/18 05:39 Dose: 4 mg Ondansetron HCl (Zofran Inj) 4 mg IVP ONCE PRN PRN Reason: Nausea/Vomiting Oxycodone/Acetaminophen (Percocet 5/325 Mg Tab) 1 tab PO Q6H PRN PRN Reason: Pain, moderate (4-7) Stop: 01/23/18 00:16 Last Admin: 01/22/18 09:31 Dose: 1 tab Polyethylene Glycol (Miralax) 17 gm PO DAILY [facility] [place] Last Admin: 01/22/18 09:31 Dose: Not Given - Labs Labs: 01/22/18 03:55 01/22/18 03:55 Attending/Attestation - Attestation I have personally seen and examined this patient.: Yes I have fully participated in the care of the patient.: Yes I have reviewed all pertinent clinical information, including history, physical exam and plan: Yes Notes (Text): 01/22/18 14:40 Attending note; Patient seen and examined with resident. by the bed side. denies any fever, abdominal pain is improving. Patient is a 32-year-old female admitted with fevers and flank pain. Acute left pyelonephritis. CT abdomen and pelvis showed left-sided hydronephrosis. Status post cystoscopy and ureteral stent placement. abdominal pain is improving. Monitor closely. Fevers resolving. Escherichia coli UTI. Started on Rocephin. Monitor closely. The diagnosis and follow-up plan discussed with patient and in detail.
[2018-01-21] MEDS ORDERED: Potassium Phosphate 3 mmol/ml Inj IV STA (13:06)
[2018-01-21] MEDS ORDERED: Potassium Phosphate 15 MMOLE in Sodium Chloride 0.9% 250 ML IVPB ONE (13:15)
[2018-01-21] MEDS: POLYETHYLENE GLYCOL 3350 17 GM/Dose PACKET PO SCH (13:43)
[2018-01-21] MEDS: Oxycodone/Acetaminophen 5/325 mg Tab PO PRN (20:26)
[2018-01-22 04:04] LABS: BASO # 0.02 K/mm3 (0.0-2.0); BASO % 0.4 % (0.0-3.0); EOS # 0.1 (0.0-0.7); EOS % 2.9 % (1.5-5.0); GRAN # 1.8 (1.4-6.5); GRAN % 37.9 % (50.0-68.0); HEMOGLOBIN 9.1 g/dL (12.0-16.0); LYMPH # 2.3 (1.2-3.4); LYMPH % 49.1 % (22.0-35.0); MEAN CELL VOLUME 92.4 fl (80.0-105.0); MEAN CORPUSCULAR HEMOGLOBIN 31.3 pg (25.0-35.0); MEAN CORPUSCULAR HGB CONC 33.8 g/dl (31.0-37.0); MEAN PLATELET VOLUME 9.7 fl (7.0-11.0); MONO # 0.5 (0.1-0.6); MONO % 9.7 % (1.0-6.0); RBC 2.91 10^6/uL (3.5-6.1); RED CELL DISTRIBUTION WIDTH 12.4 % (11.5-14.5); WHITE BLOOD COUNT 4.8 10^3/ul (4.5-11.0)
[2018-01-22] MEDS: HYDROmorphone 0.5 mg/0.5 ml ISec IVP PRN ×4 (04:44→23:14)
[2018-01-22 05:02] LABS: ALBUMIN 3.3 g/dL (3.0-4.8); ALT/SGPT 34 U/L (7-56); AST/SGOT 25 U/L (14-36); BLOOD UREA NITROGEN 5 mg/dL (7-21); CALCIUM 8.9 mg/dL (8.4-10.5); GFR AFRICAN-AMERICAN > 60; GFR NON-AFRICAN AMERICAN > 60
[2018-01-22] MEDS: cefTRIAXone 1 gm 1 GM/100 ML BAG IVPB SCH (09:31)
[2018-01-22] MEDS: POLYETHYLENE GLYCOL 3350 17 GM/Dose PACKET PO SCH (09:31)
[2018-01-22] MEDS: Oxycodone/Acetaminophen 5/325 mg Tab PO PRN (09:31)
--- NOTE | 2018-01-22 11:01 | CP.PCM.PN ---
<Camial Tabares - Last Filed: 01/22/18 11:11> Subjective - Date & Time of Evaluation Date of Evaluation: 01/22/18 Time of Evaluation: 10:54 - Subjective Subjective: Camila Tabares, Internal Medicine Progress Note for Dr. Hdez Patient seen and examined this morning. No overnight events. Patient reports improved flank pain, but worsening dysuria and abdominal pain. Patient denies chest pain, heart palpitations, shortness of breath, nausea, vomiting, constipation, and diarrhea, and hematuria. Objective - Vital Signs/Intake and Output Vital Signs (last 24 hours): Temp Pulse Resp BP Pulse Ox 98.4 F 68 20 113/76 99 01/22/18 07:58 01/22/18 07:58 01/22/18 07:58 01/22/18 07:58 01/22/18 07:58 Intake and Output: 01/22/18 01/22/18 06:59 18:59 Intake Total 720 Output Total 2175 Balance -1455 - Medications Medications: Current Medications Acetaminophen (Tylenol 325mg Tab) 650 mg PO Q6H PRN PRN Reason: Fever >100.4 F Last Admin: 01/18/18 21:14 Dose: 650 mg Docusate Sodium (Colace Liquid) 100 mg PO TID [facility] Last Admin: 01/22/18 09:31 Dose: Not Given Hydromorphone HCl (Dilaudid) 0.5 mg IVP Q6H PRN PRN Reason: Pain, severe (8-10) Last Admin: 01/22/18 04:44 Dose: 0.5 mg Ceftriaxone Sodium (Rocephin 1 Gram Ivpb) 1 gm in 100 mls @ 100 mls/hr IVPB DAILY JUAN PRN Reason: Protocol Last Admin: 01/22/18 09:31 Dose: 100 mls/hr Morphine Sulfate (Morphine) 4 mg IVP Q3H PRN PRN Reason: Pain, severe (8-10) Last Admin: 01/20/18 09:10 Dose: 4 mg Ondansetron HCl (Zofran Inj) 4 mg IVP Q8H PRN PRN Reason: Nausea/Vomiting Stop: 01/22/18 23:59 Last Admin: 01/18/18 05:39 Dose: 4 mg Ondansetron HCl (Zofran Inj) 4 mg IVP ONCE PRN PRN Reason: Nausea/Vomiting Oxycodone/Acetaminophen (Percocet 5/325 Mg Tab) 1 tab PO Q6H PRN PRN Reason: Pain, moderate (4-7) Stop: 01/23/18 00:16 Last Admin: 01/22/18 09:31 Dose: 1 tab Polyethylene Glycol (Miralax) 17 gm PO DAILY JUAN Last Admin: 01/22/18 09:31 Dose: Not Given - Labs Labs: 01/22/18 03:55 01/22/18 03:55 - Constitutional Appears: Well, Non-toxic - Head Exam Head Exam: ATRAUMATIC, NORMOCEPHALIC - Eye Exam Eye Exam: EOMI, PERRL - Respiratory Exam Respiratory Exam: Clear to Ausculation Bilateral, NORMAL BREATHING PATTERN - Cardiovascular Exam Cardiovascular Exam: REGULAR RHYTHM, RRR - GI/Abdominal Exam GI & Abdominal Exam: Soft, Tenderness (reduced), Normal Bowel Sounds - Extremities Exam Extremities Exam: Full ROM - Back Exam Back Exam: CVA tenderness (L) (improved), CVA tenderness (R) (improved) - Neurological Exam Neurological Exam: Alert, Awake, CN II-XII Intact, Oriented x3 Neuro motor strength exam: Left Upper Extremity: 5, Right Upper Extremity: 5, Left Lower Extremity: 5, Right Lower Extremity: 5 - Psychiatric Exam Psychiatric exam: Normal Affect, Normal Mood - Skin Skin Exam: Dry, Intact, Normal Color Assessment and Plan - Assessment and Plan (Free Text) Assessment: 32 year old female with no past medical history presents to the emergency department with 3 days history of bilateral flank pain that is worse on the left side. Plan: Bilateral Flank Pain 2/2 to Pyelonephritis vs. hemorrhagic ovarian cyst -CT abdomen (01/18): left hydroureter/hydronephrosis likely due to recently passed or non visible calculi. Left adnexal cysts. -Pelvis Ultrasounds (01/18): septated mass/ complex cyst left adnexa corresponding to findings on recent CT scan -Renal Ultrasound (01/18): unremarkable renal sonogram -Urine analysis (01/18): moderate blood, positive nitrite, large leukocyte esterase, 1.0 urobilinogen, 30 protein, 1-3 urine RBC, many urine WBCs, and many bacteria. -Transvaginal Ultrasound (01/19): two complex cystic masses in the left adnexa. Larger mass is 4.8x3.2x5.3, most compatible with hemorrhagic cysts. 2.1x2.8x2.3 anterior wall intramural fibroid. -Hematuria has resolved today. -Left ureteral stent placed by surgery, as per recommended by urology. -Continue to strain urine. -Patient given 2 doses of ceftriaxone 1 gm from 01/18-01/19. Patient given meropenem 1 g Q8 on 01/19. Patient restarted on ceftriaxone 1 gm starting 01/21. Patient on day 5 of antibiotics. -Patient continued on oxycodone/acetaminophen 1 tab PO Q6 PRN, hydromorphone 0.5 mg IVP Q6 PRN for pain -Zofran 4 mg IVP Q8 PRN -Acetaminophen 650 mg Q6 PRN for fever -Infectious Disease, Dr. Guzman, consulted. Follow recommendations. -Urology, Dr. Santacruz, consulted. Follow recommendations. -Follow up with Search Director outpatient for hemorrhagic ovarian cyst as per ID and urology. -Stent to be removed Tuesday. Constipation -Last bowel movement was yesterday. -Miralax 17 gm stopped Normocytic Anemia -Hemoglobin: 9.1 from 8.7 on 01/21. Baseline is unknown since this patient's first admission. Hemoglobin had been trending down from admission, which started at 11.2. It has started to improve since yesterday. -Continue to monitor. Hypokalemia-resolved -Potassium: 4.0 from 3.5 01/21 -Patient was given one dose of 20 meq of potassium chloride once 01/21. Hypophosphatemia-resolved -Phosphate: 3.6 from 2.2 on 01/21 -Patient was ordered 15 meq of potassium phosphate once 01/21. Disposition -Stent removal Tuesday -Patient should follow up with Search Director and PCP outpatient for hemorrhagic cyst. -Patient should complete full course of antibiotics. Patient seen and examined with Dr. Hdez <Lesli Hdez - Last Filed: 01/22/18 18:48> Objective - Vital Signs/Intake and Output Vital Signs (last 24 hours): Temp Pulse Resp BP Pulse Ox 97.9 F 73 20 120/86 100 01/22/18 14:58 01/22/18 14:58 01/22/18 14:58 01/22/18 14:58 01/22/18 14:58 Intake and Output: 01/22/18 01/22/18 06:59 18:59 Intake Total 720 Output Total 2175 Balance -1455 - Medications Medications: Current Medications Acetaminophen (Tylenol 325mg Tab) 650 mg PO Q6H PRN PRN Reason: Fever >100.4 F Last Admin: 01/18/18 21:14 Dose: 650 mg Docusate Sodium (Colace Liquid) 100 mg PO TID [facility] Last Admin: 01/22/18 17:24 Dose: Not Given Hydromorphone HCl (Dilaudid) 0.5 mg IVP Q6H PRN PRN Reason: Pain, severe (8-10) Last Admin: 01/22/18 17:03 Dose: 0.5 mg Ceftriaxone Sodium (Rocephin 1 Gram Ivpb) 1 gm in 100 mls @ 100 mls/hr IVPB DAILY JUAN PRN Reason: Protocol Last Admin: 01/22/18 09:31 Dose: 100 mls/hr Morphine Sulfate (Morphine) 4 mg IVP Q3H PRN PRN Reason: Pain, severe (8-10) Last Admin: 01/20/18 09:10 Dose: 4 mg Ondansetron HCl (Zofran Inj) 4 mg IVP Q8H PRN PRN Reason: Nausea/Vomiting Stop: 01/22/18 23:59 Last Admin: 01/18/18 05:39 Dose: 4 mg Ondansetron HCl (Zofran Inj) 4 mg IVP ONCE PRN PRN Reason: Nausea/Vomiting Oxycodone/Acetaminophen (Percocet 5/325 Mg Tab) 1 tab PO Q6H PRN PRN Reason: Pain, moderate (4-7) Stop: 01/23/18 00:16 Last Admin: 01/22/18 09:31 Dose: 1 tab Polyethylene Glycol (Miralax) 17 gm PO DAILY [facility] Last Admin: 01/22/18 09:31 Dose: Not Given - Labs Labs: 01/22/18 03:55 01/22/18 03:55 Attending/Attestation - Attestation I have personally seen and examined this patient.: Yes I have fully participated in the care of the patient.: Yes I have reviewed all pertinent clinical information, including history, physical exam and plan: Yes Notes (Text): 01/22/18 18:47 Attending note; Patient seen and examined with resident. Patient is a 32-year-old female admitted with fevers and flank pain. Acute left pyelonephritis and left hydronephrosis. CT abdomen and pelvis showed left-sided hydronephrosis. Status post cystoscopy and ureteral stent placement. Currently patient complaining of frequent urination and mild hematuria. patient is afebrile and nontoxic. Leukocytosis is resolved. Case discussed with urology Dr. Vicente Santacruz in detail. Plan for stent removal tomorrow. Escherichia coli UTI. Started on Rocephin. Ovarian cyst /hemorrhagic sit cyst ; needs outpatient FLEET MANAGER evaluation. The diagnosis and follow-up plan discussed with patient and in detail.
[2018-01-23] MEDS ORDERED: Oxycodone/Acetaminophen 5/325 mg Tab PO ONE ×2 (02:23→06:00)
[2018-01-23] MEDS: HYDROmorphone 0.5 mg/0.5 ml ISec IVP PRN ×3 (05:14→18:06)
[2018-01-23] MEDS ORDERED: Propofol 10 mg/ml Inj (20 ML) ONE (07:52)
[2018-01-23] MEDS ORDERED: Lidocaine 1% Inj (20ml) ONE (07:53)
[2018-01-23] MEDS ORDERED: Iohexol 240 (50 ml) ONE (08:00)
[2018-01-23] MEDS ORDERED: ePHEDrine 50 mg/ml Inj ONE (08:01)
[2018-01-23] MEDS ORDERED: HYDROmorphone 0.5 mg/0.5 ml ISec IVP PRN (08:20)
--- NOTE | 2018-01-23 08:54 | CP.PCM.PN ---
<Marko Lamb - Last Filed: 01/23/18 15:24> Subjective - Date & Time of Evaluation Date of Evaluation: 01/23/18 Time of Evaluation: 14:04 - Subjective Subjective: Marko Lamb PGY1 Progress Note for Dr. Terrie Flannery Ms. Hooker was examined at bedside this morning. She reported continuation of her L flank pain and lower abdominal pain, which she described as sharp. She also reported continuation of burning and pain with urination, and noted blood in her urine. She denied any dizziness, shortness of breath, chest pain, nausea or vomiting. Objective - Vital Signs/Intake and Output Vital Signs (last 24 hours): Temp Pulse Resp BP Pulse Ox 97.8 F 73 18 111/71 96 01/23/18 08:32 01/23/18 08:32 01/23/18 08:32 01/23/18 08:32 01/23/18 08:32 Intake and Output: 01/23/18 01/23/18 06:59 18:59 Intake Total 720 Balance 720 - Medications Medications: Current Medications Acetaminophen (Tylenol 325mg Tab) 650 mg PO Q6H PRN PRN Reason: Fever >100.4 F Last Admin: 01/18/18 21:14 Dose: 650 mg Docusate Sodium (Colace Liquid) 100 mg PO TID [facility] Last Admin: 01/22/18 17:24 Dose: Not Given Hydromorphone HCl (Dilaudid) 0.5 mg IVP Q6H PRN PRN Reason: Pain, severe (8-10) Last Admin: 01/23/18 05:14 Dose: 0.5 mg Hydromorphone HCl (Dilaudid) 0.5 mg IVP Q15M PRN PRN Reason: Pain, moderate (4-7) Stop: 01/23/18 10:21 Ceftriaxone Sodium (Rocephin 1 Gram Ivpb) 1 gm in 100 mls @ 100 mls/hr IVPB DAILY [facility] PRN Reason: Protocol Last Admin: 01/22/18 09:31 Dose: 100 mls/hr Ondansetron HCl (Zofran Inj) 4 mg IVP ONCE PRN PRN Reason: Nausea/Vomiting Ondansetron HCl (Zofran Inj) 4 mg IVP ONCE PRN PRN Reason: Nausea/Vomiting Polyethylene Glycol (Miralax) 17 gm PO DAILY [facility] Last Admin: 01/22/18 09:31 Dose: Not Given - Labs Labs: 01/22/18 03:55 01/22/18 03:55 - Constitutional Appears: In Acute Distress - Head Exam Head Exam: ATRAUMATIC, NORMOCEPHALIC - Eye Exam Eye Exam: EOMI, Normal appearance - ENT Exam ENT Exam: Mucous Membranes Moist - Respiratory Exam Respiratory Exam: Clear to Ausculation Bilateral, NORMAL BREATHING PATTERN. absent: Rales, Rhonchi, Wheezes - Cardiovascular Exam Cardiovascular Exam: REGULAR RHYTHM, +S1, +S2 - GI/Abdominal Exam GI & Abdominal Exam: Soft, Tenderness, Normal Bowel Sounds. absent: Distended Additional comments: tenderness to palpation of lower abdomen - Extremities Exam Extremities Exam: Normal Inspection. absent: Pedal Edema - Back Exam Back Exam: CVA tenderness (L) - Neurological Exam Neurological Exam: Alert, Awake, Oriented x3 - Psychiatric Exam Psychiatric exam: Normal Mood - Skin Skin Exam: Normal Color Assessment and Plan - Assessment and Plan (Free Text) Assessment: 32 year old female with no past medical history presents to the emergency department with 3 days history of bilateral flank pain that is worse on the left side, admitted for pyelonephritis. Plan: Bilateral Flank Pain 2/2 to Pyelonephritis vs. hemorrhagic ovarian cyst - CT abdomen (01/18): left hydroureter/hydronephrosis likely due to recently passed or non visible calculi. Left adnexal cysts. - Pelvic US (01/18): septated mass/ complex cyst left adnexa corresponding to findings on recent CT scan - Renal US (01/18): unremarkable - UA (01/18): positive nitrite, large leukocyte esterase, many urine WBCs, many bacteria. - UCx: E.coli - TV US (01/19): two complex cystic masses in the left adnexa. Larger mass is 4.8x3.2x5.3, most compatible with hemorrhagic cysts. 2.1x2.8x2.3 anterior wall intramural fibroid - pt continues to complain of flank pain, dysuria, hematuria - Left ureteral stent removed today by urology - ceftriaxone 1 gm day 3. Total day 5 of antibiotics. - continue dilaudid 0.5 IVP q6h PRN for pain - Zofran 4 mg IVP Q8 PRN - Acetaminophen 650 mg Q6 PRN for fever - ID, Dr. Guzman, consulted- recs appreciated - Urology, Dr. Santacruz, consulted- stent removed today - Follow up with Bender Machine Operator outpatient for hemorrhagic ovarian cyst as per ID and urology Normocytic Anemia - Hb 01/23: 10.4 from 8.7 on 01/21 - Baseline is unknown - Continue to monitor Hypokalemia-resolved - Potassium: 4.4 from 3.5 01/21 - will continue to monitor Hypophosphatemia-resolved - Phosphate: 3.6 from 2.2 on 01/21 - will continue to monitor Patient seen and examined with Dr. Terrie Flannery <Terrie Flannery R - Last Filed: 01/23/18 16:39> Objective - Vital Signs/Intake and Output Vital Signs (last 24 hours): Temp Pulse Resp BP Pulse Ox 98 F 70 18 93/56 L 99 01/23/18 14:00 01/23/18 14:00 01/23/18 14:00 01/23/18 14:00 01/23/18 14:00 Intake and Output: 01/23/18 01/23/18 06:59 18:59 Intake Total 720 600 Output Total 1000 Balance 720 -400 - Medications Medications: Current Medications Acetaminophen (Tylenol 325mg Tab) 650 mg PO Q6H PRN PRN Reason: Fever >100.4 F Last Admin: 01/18/18 21:14 Dose: 650 mg Hydromorphone HCl (Dilaudid) 0.5 mg IVP Q6H PRN PRN Reason: Pain, severe (8-10) Last Admin: 01/23/18 12:21 Dose: 0.5 mg Ceftriaxone Sodium (Rocephin 1 Gram Ivpb) 1 gm in 100 mls @ 100 mls/hr IVPB DAILY [facility] PRN Reason: Protocol Last Admin: 01/23/18 09:23 Dose: 100 mls/hr Ondansetron HCl (Zofran Inj) 4 mg IVP ONCE PRN PRN Reason: Nausea/Vomiting Ondansetron HCl (Zofran Inj) 4 mg IVP ONCE PRN PRN Reason: Nausea/Vomiting Polyethylene Glycol (Miralax) 17 gm PO DAILY [facility] Last Admin: 01/23/18 11:07 Dose: Not Given - Labs Labs: 01/23/18 09:15 01/23/18 09:15 Attending/Attestation - Attestation I have personally seen and examined this patient.: Yes I have fully participated in the care of the patient.: Yes I have reviewed all pertinent clinical information, including history, physical exam and plan: Yes Notes (Text): Patient seen and examined by me at 12:15PM with resident. Patient is new to me. Case discussed with Dr. Hdez. Case including HPI, physical exam, and assessment and plan discussed with resident. Agree with above with following additions/corrections. Patient is a 32-year-old female with no significant past medical history that presented to the emergency room with 3 days of bilateral flank pain, worse on the left. Patient states that she is feeling a little better. States that the pain on a scale of 1-10, 10 being the worst pain she is ever felt, the pain is an 8. Pain medications are helping. She states that when she is lying down she is having bilateral flank pain. Pain is radiating to her abdomen. She also complains of burning and pain with urination. Pain medications are helping. She denies any nausea or vomiting. No chest pain or shortness of breath. No fevers or chills. No headaches or dizziness. Physical exam: Gen: Awake and alert sitting up in bed in no acute distress HEENT: Normocephalic, atraumatic. Extraocular muscles intact, pupils equal reactive. No scleral icterus. Oropharynx is pink and moist. No pharyngeal erythema or exudate appreciated. Neck is supple. Cardiovascular: Normal rhythm. Normal S1, S2. No murmurs, rubs, or gallops appreciated Pulmonary: Normal respiratory effort. No rhonchi, rales or wheezing appreciated. Gastrointestinal: Soft, positive generalized abdominal tenderness, nondistended , positive bowel sounds all 4 quadrants, no guarding. Musculoskeletal: Normal range of motion all extremities, no calf tenderness. Positive left-sided CVA tenderness Central nervous system: AAO x 3. Dermatologic: Skin warm and dry Assessment and plan: Patient is a 32-year-old female with no significant past medical history that presented to the emergency room with 3 days of bilateral flank pain, worse on the left. 1. Bilateral CVA tenderness. More prominent on left. CT abdomen and pelvis on per radiologist showed left hydroureter/hydronephrosis likely the sequela of recently passed or nonvisible calculi, left adnexal cyst. Pelvic ultrasound on 01/18/2018 per radiologist showed septated mass/complex cyst left adnexa. Renal ultrasound on 01/18/2018 per radiologist showed unremarkable renal sonogram. Urology was consulted, recommendations appreciated. Patient had stent placed 01/19/18. Patient is status post stent removal today, 01/23/18, with Dr. Vicente Santacruz. Still with pain. Continue with pain management. Likely secondary to UTI. Continue with antibiotics. 2. Escherichia coli UTI. Continue with Rocephin. Following, recommendations appreciated. Blood cultures negative. 3. Hemorrhagic adnexal cysts. Pelvic ultrasound as above. Transvaginal ultrasound on 01/19/2018 per radiologist showed 2 complex cystic masses in the left adnexa, the larger measures 4.8 x 3.2 x 5.3 cm, most compatible with hemorrhagic cysts; follow-up ultrasound 3-6 months intervals recommended; 2.1 x 2.8 x 2.3 cm anterior wall intramural fibroid. Surgery was consulted who did not recommend surgical intervention at this time. Case was discussed with deep fat cook fry who recommended outpatient follow-up. 4. Anemia. Unsure of baseline H&H. Patient does complain of some hematuria. We' ll continue to monitor CBC for now. 5. Hypokalemia and hypophosphatemia. Resolved, continue to monitor Case was discussed in detail with the patient regarding current diagnosis and treatment plan.
[2018-01-23] MEDS: cefTRIAXone 1 gm 1 GM/100 ML BAG IVPB SCH (09:23)
[2018-01-23 09:37] LABS: BASO # 0.01 K/mm3 (0.0-2.0); BASO % 0.3 % (0.0-3.0); EOS # 0.1 (0.0-0.7); EOS % 1.9 % (1.5-5.0); GRAN # 1.3 (1.4-6.5); GRAN % 34.5 % (50.0-68.0); HEMOGLOBIN 10.4 g/dL (12.0-16.0); MEAN CORPUSCULAR HEMOGLOBIN 30.7 pg (25.0-35.0); MEAN CORPUSCULAR HGB CONC 33.3 g/dl (31.0-37.0); MEAN PLATELET VOLUME 9.7 fl (7.0-11.0); MONO # 0.4 (0.1-0.6); MONO % 9.3 % (1.0-6.0); RBC 3.39 10^6/uL (3.5-6.1); RED CELL DISTRIBUTION WIDTH 12.3 % (11.5-14.5); WHITE BLOOD COUNT 3.8 10^3/ul (4.5-11.0)
[2018-01-23 09:51] LABS: ALBUMIN 3.9 g/dL (3.0-4.8); ALT/SGPT 46 U/L (7-56); AST/SGOT 39 U/L (14-36); BLOOD UREA NITROGEN 5 mg/dL (7-21); CALCIUM 9.6 mg/dL (8.4-10.5); GFR AFRICAN-AMERICAN > 60; GFR NON-AFRICAN AMERICAN > 60
--- NOTE | 2018-01-23 10:55 | RAD ---
Date of service: 01/23/2018 PROCEDURE: Fluoroscopy up to 1 hour HISTORY: evaluation of LT kidney for stones COMPARISON: TECHNIQUE: Fluoroscopy was provided in the operating room. 2 seconds of fluoro time was used with accumulative dose of 0.25 mGy. Three images were submitted FINDINGS: The 1st 2 images show a left ureteral stent. The 3rd image shows a scope and wire in the renal collecting system IMPRESSION: As above
[2018-01-23] MEDS: POLYETHYLENE GLYCOL 3350 17 GM/Dose PACKET PO SCH (11:07)
[2018-01-23] MEDS: Lactobacillus Acidophilus 500 MU Cap PO SCH (17:36)
--- NOTE | 2018-01-23 18:58 | OP ---
Copied To: Rafa Santacruz MD Attending MD: Rafa Santacruz MD UROLOGY OPERATIVE NOTE PROCEDURE DATE: 01/23/2018 PREOPERATIVE DIAGNOSES: Left hydronephrosis, left flank pain, possible left stone, and resolving pyelonephritis. POSTOPERATIVE DIAGNOSES: Left hydronephrosis, left flank pain, possible left stone, and resolving pyelonephritis. PROCEDURES: Exam under anesthesia, cystoscopy, removal of left double-J stent, left ureteroscopy. COMPLICATIONS: There were no complications. BLOOD LOSS: Less than 10 mL. FINDINGS: 1. Normal bladder mucosa. 2. Normal ureteral mucosa. We did not see any stones. An otherwise normal endoscopy, ureteroscopy. INDICATIONS: See history and physical, consultation, and see previously dictated note. We previously placed a stent on 01/19/2018, for hydronephrosis and recurrent pain. At that time, we did not see any further hydronephrosis. At that time, we placed the stent. Since then, the patient is doing much, much better clinically and she is here now for the above-listed procedure. DESCRIPTION OF PROCEDURE: After obtaining informed consent, the patient was placed on the table. Routine monitor was placed. Time-out was called to confirm the patient's positioning. easily, identified the old stent, removed it without difficulty, put a wire up to the kidney. We went adjacent to that wire. Instead of taking the wire, we went all the way up to the kidney and I did not see any stones within the ureter. At this point, we removed this. We did it atraumatically. Bladder was emptied, cystoscope removed. normal external genitalia. No pelvic or rectal masses. The patient tolerated the procedure well without complication. Rafa Santacruz MD
--- NOTE | 2018-01-23 19:01 | OP ---
Copied To: Rafa Santacruz MD Attending MD: Rafa Santacruz MD PROCEDURE DATE: 01/19/2018 UROLOGY OPERATIVE NOTE PREOPERATIVE DIAGNOSES: Left hydronephrosis, left flank pain, severe left renal colic, left pyelonephritis, possible stone disease. POSTOPERATIVE DIAGNOSES: Left hydronephrosis, left flank pain, severe left renal colic, left pyelonephritis, possible stone disease. PROCEDURE: Cystoscopy, left retrograde pyelogram, insertion of a left double-J stent. INDICATIONS: See history and physical, see the consultation from 01/18/2018. We have discussed options with the medical doctor. The patient was under the care of Infectious Disease. After all these different options, the patient had a CT scan that shows left hydronephrosis. The ultrasound did not show that same hydro, but she is having intractable pain. I had requested in the emergency to see the previous consult notes. I had requested in the emergency AUTOMOTIVE GENERATOR REPAIRER consult the possibility from emergency for . We discussed options. I discussed AUTOMOTIVE GENERATOR REPAIRER consult as an emergency. I asked the medical team for the possibility precaution. They have apparently spoken with the AUTOMOTIVE GENERATOR REPAIRER team. After all the different options, it appeared that the patient has pyelonephritis, but also that she is still having ongoing pain. She does not have any evidence of an acute abdomen. Though here now the patient's stent basically resolve the pain. I explained to the patient and her that it is possible the pain is all related to pyelonephritis, it is possible that there is a stone there. Especially, there is a left hydro on the CT scan. Unclear why it was not there in the ultrasound. After discussing options, risks, benefits and alternatives, the patient is now here for the above and we will see how she does clinically after this. DESCRIPTION OF PROCEDURE: After obtaining informed consent, the patient was placed on the table. Routine monitors were placed. Timeout was called to confirm the patient positioning. We introduced cystoscope via the urethra, ureteral orifice identified. were identified. The left retrograde pyelogram was performed. We did this atraumatically and quickly as possible. We put a wire up to the kidney and put a double-J stent and drain the kidney. It is not related to be all the way hydronephrotic. We will see how the patient responds. The bladder was emptied, cystoscope removed. Exam under anesthesia revealed normal external genitalia. No pelvic masses. No rectal masses. The patient tolerated the procedure well without complication. Rafa Santacruz MD
--- NOTE | 2018-01-23 19:44 | CP.PCM.PN ---
Subjective - Date & Time of Evaluation Date of Evaluation: 01/21/18 Time of Evaluation: 12:45 - Subjective Subjective: No fevers, not in distress, had stent removed today, still with flank pain but less, no nausea. Objective - Vital Signs/Intake and Output Vital Signs (last 24 hours): Temp Pulse Resp BP Pulse Ox 98.7 F 82 20 109/72 98 01/21/18 07:48 01/21/18 07:48 01/21/18 07:48 01/21/18 07:48 01/21/18 07:48 Intake and Output: 01/21/18 01/21/18 06:59 18:59 Intake Total 780 Balance 780 - Medications Medications: Current Medications Acetaminophen (Tylenol 325mg Tab) 650 mg PO Q6H PRN PRN Reason: Fever >100.4 F Last Admin: 01/18/18 21:14 Dose: 650 mg Hydromorphone HCl (Dilaudid) 0.5 mg IVP Q6H PRN PRN Reason: Pain, severe (8-10) Last Admin: 01/21/18 05:33 Dose: 0.5 mg Sodium Chloride (Sodium Chloride 0.9%) 1,000 mls @ 100 mls/hr IV .Q10H [facility] Last Admin: 01/20/18 20:28 Dose: 100 mls/hr Ceftriaxone Sodium (Rocephin 1 Gram Ivpb) 1 gm in 100 mls @ 100 mls/hr IVPB DAILY [facility] PRN Reason: Protocol Morphine Sulfate (Morphine) 4 mg IVP Q3H PRN PRN Reason: Pain, severe (8-10) Last Admin: 01/20/18 09:10 Dose: 4 mg Ondansetron HCl (Zofran Inj) 4 mg IVP Q8H PRN PRN Reason: Nausea/Vomiting Stop: 01/22/18 23:59 Last Admin: 01/18/18 05:39 Dose: 4 mg Ondansetron HCl (Zofran Inj) 4 mg IVP ONCE PRN PRN Reason: Nausea/Vomiting Oxycodone/Acetaminophen (Percocet 5/325 Mg Tab) 1 tab PO Q6H PRN PRN Reason: Pain, moderate (4-7) Stop: 01/23/18 00:16 Last Admin: 01/20/18 00:27 Dose: 1 tab - Labs Labs: 01/21/18 03:55 01/21/18 03:55 - Constitutional Appears: Non-toxic, No Acute Distress - Head Exam Head Exam: NORMAL INSPECTION - ENT Exam ENT Exam: Mucous Membranes Moist - Respiratory Exam Respiratory Exam: absent: Rales, Rhonchi - Cardiovascular Exam Cardiovascular Exam: +S1, +S2 - GI/Abdominal Exam GI & Abdominal Exam: Soft. absent: Tenderness Assessment and Plan - Assessment and Plan (Free Text) Plan: Assessment sepsis with E. coli left sided pyelonephritis, S/P ureteral stent placement and removal left ovarian cyst asthma Plan Continue Rocephin and can be switched to PO antibiotics to complete total 14 days of therapy recommend Mother Tester evaluation of the ovarian cyst will monitor clinically while the patient is in the hospital
[2018-01-24] MEDS: HYDROmorphone 0.5 mg/0.5 ml ISec IVP PRN ×2 (00:02→10:11)
[2018-01-24 06:57] LABS: BASO # 0.01 K/mm3 (0.0-2.0); BASO % 0.2 % (0.0-3.0); EOS # 0.2 (0.0-0.7); EOS % 2.9 % (1.5-5.0); GRAN # 2.53 (1.4-6.5); GRAN % 49.3 % (50.0-68.0); HEMOGLOBIN 10.9 g/dL (12.0-16.0); LYMPH # 1.9 (1.2-3.4); LYMPH % 37.5 % (22.0-35.0); MEAN CELL VOLUME 92.1 fl (80.0-105.0); MEAN CORPUSCULAR HEMOGLOBIN 30.7 pg (25.0-35.0); MEAN CORPUSCULAR HGB CONC 33.3 g/dl (31.0-37.0); MEAN PLATELET VOLUME 9.9 fl (7.0-11.0); MONO # 0.5 (0.1-0.6); MONO % 10.1 % (1.0-6.0); RBC 3.55 10^6/uL (3.5-6.1); RED CELL DISTRIBUTION WIDTH 12.5 % (11.5-14.5); WHITE BLOOD COUNT 5.1 10^3/ul (4.5-11.0)
[2018-01-24 07:18] VITALS: RESP 18
--- NOTE | 2018-01-24 07:50 | CP.PCM.PN ---
Objective - Vital Signs/Intake and Output Vital Signs (last 24 hours): Temp Pulse Resp BP Pulse Ox 98.2 F 70 18 101/65 99 01/24/18 06:00 01/24/18 06:00 01/24/18 06:00 01/24/18 06:00 01/24/18 06:00 Intake and Output: 01/24/18 01/24/18 06:59 18:59 Intake Total 360 Balance 360 - Medications Medications: Current Medications Acetaminophen (Tylenol 325mg Tab) 650 mg PO Q6H PRN PRN Reason: Fever >100.4 F Last Admin: 01/18/18 21:14 Dose: 650 mg Hydromorphone HCl (Dilaudid) 0.5 mg IVP Q6H PRN PRN Reason: Pain, severe (8-10) Last Admin: 01/24/18 00:02 Dose: 0.5 mg Ceftriaxone Sodium (Rocephin 1 Gram Ivpb) 1 gm in 100 mls @ 100 mls/hr IVPB DAILY [facility] PRN Reason: Protocol Last Admin: 01/23/18 09:23 Dose: 100 mls/hr Lactobacillus Acidophilus (Bacid Acidophilus) 1 cap PO BID [facility] Last Admin: 01/23/18 17:36 Dose: 1 cap Ondansetron HCl (Zofran Inj) 4 mg IVP ONCE PRN PRN Reason: Nausea/Vomiting Ondansetron HCl (Zofran Inj) 4 mg IVP ONCE PRN PRN Reason: Nausea/Vomiting Polyethylene Glycol (Miralax) 17 gm PO DAILY [facility] Last Admin: 01/23/18 11:07 Dose: Not Given - Labs Labs: 01/24/18 06:20 01/23/18 09:15
[2018-01-24] MEDS: Lactobacillus Acidophilus 500 MU Cap PO SCH (09:25)
[2018-01-24] MEDS: POLYETHYLENE GLYCOL 3350 17 GM/Dose PACKET PO SCH (09:26)
[2018-01-24] MEDS: cefTRIAXone 1 gm 1 GM/100 ML BAG IVPB SCH (09:27)
[2018-01-24 14:04] VITALS: BP 99/62; PULSE 78; TEMP 98.5; O2SAT 98
--- NOTE | 2018-01-24 14:22 | CP.PCM.PN ---
<Amy Pollard - Last Filed: 01/24/18 14:19> Subjective - Date & Time of Evaluation Date of Evaluation: 01/24/18 Time of Evaluation: 09:00 - Subjective Subjective: PGY-3 infectious disease progress note for Dr. Guzman Patient seen and examined at bedside. Patient reports much improvement of her pain. She reports some discomfort with urination. Patient reports that she has appointment with matzo forming machine operator for outpatient follow up. Yesterday patient had pigtail stent removed. Patient denies any fever, chills, chest pain, n/v. Objective - Vital Signs/Intake and Output Vital Signs (last 24 hours): Temp Pulse Resp BP Pulse Ox 98.5 F 78 18 99/62 L 98 01/24/18 14:00 01/24/18 14:00 01/24/18 14:00 01/24/18 14:00 01/24/18 14:00 Intake and Output: 01/24/18 01/24/18 06:59 18:59 Intake Total 360 Balance 360 - Medications Medications: Current Medications Acetaminophen (Tylenol 325mg Tab) 650 mg PO Q6H PRN PRN Reason: Fever >100.4 F Last Admin: 01/18/18 21:14 Dose: 650 mg Hydromorphone HCl (Dilaudid) 0.5 mg IVP Q6H PRN PRN Reason: Pain, severe (8-10) Last Admin: 01/24/18 10:11 Dose: 0.5 mg Ceftriaxone Sodium (Rocephin 1 Gram Ivpb) 1 gm in 100 mls @ 100 mls/hr IVPB DAILY [facility] PRN Reason: Protocol Last Admin: 01/24/18 09:27 Dose: 100 mls/hr Lactobacillus Acidophilus (Bacid Acidophilus) 1 cap PO BID [facility] Last Admin: 01/24/18 09:25 Dose: 1 cap Ondansetron HCl (Zofran Inj) 4 mg IVP ONCE PRN PRN Reason: Nausea/Vomiting Ondansetron HCl (Zofran Inj) 4 mg IVP ONCE PRN PRN Reason: Nausea/Vomiting Polyethylene Glycol (Miralax) 17 gm PO DAILY [facility] Last Admin: 01/24/18 09:26 Dose: 17 gm - Labs Labs: 01/24/18 06:20 01/23/18 09:15 - Constitutional Appears: No Acute Distress - Head Exam Head Exam: ATRAUMATIC, NORMAL INSPECTION, NORMOCEPHALIC - Eye Exam Eye Exam: EOMI, Normal appearance - ENT Exam ENT Exam: Mucous Membranes Moist - Respiratory Exam Respiratory Exam: Clear to Ausculation Bilateral, NORMAL BREATHING PATTERN. absent: Rhonchi, Wheezes, Respiratory Distress - Cardiovascular Exam Cardiovascular Exam: REGULAR RHYTHM, +S1, +S2. absent: Bradycardia, Tachycardia , Diastolic murmur, Murmur - GI/Abdominal Exam GI & Abdominal Exam: Soft, Normal Bowel Sounds. absent: Distended, Firm, Guarding - Neurological Exam Neurological Exam: Alert, Awake, Oriented x3 - Skin Skin Exam: Dry, Intact, Normal Color, Warm Assessment and Plan - Assessment and Plan (Free Text) Assessment: 32 yo female with PMH of asthma presented with bilateral flank pain, sepsis due to pyelonephritissecondary to e. coli. Patient was afebrile overnight. urine cultures positive for e. coli. Patient is to follow up SPORTS MARKETING COORDINATOR outpatient for ovarian cyst. Continue Rocephin for total of 14 days, can be switched to PO. Blood cultures showed no growth. case reviewed and discussed with attending, Dr. Guzman <Jassi Guzman - Last Filed: 01/24/18 17:19> Objective - Vital Signs/Intake and Output Vital Signs (last 24 hours): Temp Pulse Resp BP Pulse Ox 98.5 F 78 18 99/62 L 98 01/24/18 14:00 01/24/18 14:00 01/24/18 14:00 01/24/18 14:00 01/24/18 14:00 Intake and Output: 01/24/18 01/24/18 06:59 18:59 Intake Total 360 720 Output Total 500 Balance 360 220 - Medications Medications: Current Medications Acetaminophen (Tylenol 325mg Tab) 650 mg PO Q6H PRN PRN Reason: Fever >100.4 F Last Admin: 01/18/18 21:14 Dose: 650 mg Hydromorphone HCl (Dilaudid) 0.5 mg IVP Q6H PRN PRN Reason: Pain, severe (8-10) Last Admin: 01/24/18 10:11 Dose: 0.5 mg Ceftriaxone Sodium (Rocephin 1 Gram Ivpb) 1 gm in 100 mls @ 100 mls/hr IVPB DAILY [facility] PRN Reason: Protocol Last Admin: 01/24/18 09:27 Dose: 100 mls/hr Lactobacillus Acidophilus (Bacid Acidophilus) 1 cap PO BID [facility] Last Admin: 01/24/18 09:25 Dose: 1 cap Ondansetron HCl (Zofran Inj) 4 mg IVP ONCE PRN PRN Reason: Nausea/Vomiting Ondansetron HCl (Zofran Inj) 4 mg IVP ONCE PRN PRN Reason: Nausea/Vomiting Polyethylene Glycol (Miralax) 17 gm PO DAILY [facility] Last Admin: 01/24/18 09:26 Dose: 17 gm - Labs Labs: 01/24/18 06:20 01/23/18 09:15 Assessment and Plan - Assessment and Plan (Free Text) Assessment: Infectious Diseases Attending Physician Addendum Patient seen and examined, discussed with manager medical. I have reviewed the pertinent clinical information for the patient, including history of present illness, medical, personal and social histories, lab results and imaging findings. I agree with the above findings, assessment and plan. In addition, will continue the patient on Rocephin for sepsis from left sided pyelonephritis with E. coli, can switch to PO antibiotics to complete the 10-14 day course.
--- NOTE | 2018-01-24 15:47 | CP.PCM.DIS ---
<Marko Lamb - Last Filed: 01/24/18 15:44> Provider - Provider Date of Admission: 01/18/18 02:54 Attending physician: Terrie Flannery DO Primary care physician: Cindy Laughlin MD Consults: ID Surgery Urology CLOTH HAULER Time Spent in preparation of Discharge (in minutes): 70 Hospital Course - Lab Results Lab Results: Micro Results 01/18/18 07:00 Blood-Venous Blood Culture - Final NO GROWTH AFTER 5 DAYS 01/18/18 07:00 Blood-Venous Gram Stain - Final TEST NOT PERFORMED 01/18/18 06:45 Blood-Venous Blood Culture - Final NO GROWTH AFTER 5 DAYS 01/18/18 06:45 Blood-Venous Gram Stain - Final TEST NOT PERFORMED Most Recent Lab Values WBC 5.1 10^3/ul (4.5-11.0) D 01/24/18 06:20 RBC 3.55 10^6/uL (3.5-6.1) 01/24/18 06:20 Hgb 10.9 g/dL (12.0-16.0) L 01/24/18 06:20 Hct 32.7 % (36.0-48.0) L 01/24/18 06:20 MCV 92.1 fl (80.0-105.0) 01/24/18 06:20 MCH 30.7 pg (25.0-35.0) 01/24/18 06:20 MCHC 33.3 g/dl (31.0-37.0) 01/24/18 06:20 RDW 12.5 % (11.5-14.5) 01/24/18 06:20 Plt Count 304 10^3/uL (120.0-450.0) 01/24/18 06:20 MPV 9.9 fl (7.0-11.0) 01/24/18 06:20 Gran % 49.3 % (50.0-68.0) L 01/24/18 06:20 Lymph % (Auto) 37.5 % (22.0-35.0) H 01/24/18 06:20 [place] % (Auto) 10.1 % (1.0-6.0) H 01/24/18 06:20 Eos % (Auto) 2.9 % (1.5-5.0) 01/24/18 06:20 Baso % (Auto) 0.2 % (0.0-3.0) 01/24/18 06:20 Gran # 2.53 (1.4-6.5) 01/24/18 06:20 Lymph # (Auto) 1.9 (1.2-3.4) 01/24/18 06:20 [place] # (Auto) 0.5 (0.1-0.6) 01/24/18 06:20 Eos # (Auto) 0.2 (0.0-0.7) 01/24/18 06:20 Baso # (Auto) 0.01 K/mm3 (0.0-2.0) 01/24/18 06:20 Neutrophils % (Manual) 87 % (50.0-70.0) H 01/18/18 06:45 Band Neutrophils % 1 % (0-2) 01/18/18 06:45 Lymphocytes % (Manual) 5 % (22.0-35.0) L 01/18/18 06:45 Monocytes % (Manual) 7 % (1.0-6.0) H 01/18/18 06:45 Platelet Evaluation Normal (NORMAL) 01/18/18 06:45 Sodium 141 mmol/L (132-148) 01/23/18 09:15 Potassium 4.4 mmol/L (3.6-5.0) 01/23/18 09:15 Chloride 102 mmol/L (98-107) 01/23/18 09:15 Carbon Dioxide 30 mmol/L (21-33) 01/23/18 09:15 Anion Gap 14 (10-20) 01/23/18 09:15 BUN 5 mg/dL (7-21) L 01/23/18 09:15 Creatinine 0.4 mg/dl (0.7-1.2) L 01/23/18 09:15 Est GFR ( Amer) > 60 01/23/18 09:15 Est GFR (Non-Af Amer) > 60 01/23/18 09:15 Random Glucose 92 mg/dL (70-110) 01/23/18 09:15 Lactic Acid 0.8 mmol/L (0.7-2.1) 01/19/18 12:00 Calcium 9.6 mg/dL (8.4-10.5) 01/23/18 09:15 Phosphorus 3.6 mg/dL (2.5-4.5) 01/22/18 03:55 Magnesium 2.0 mg/dL (1.7-2.2) 01/22/18 03:55 Total Bilirubin 0.2 mg/dL (0.2-1.3) 01/23/18 09:15 AST 39 U/L (14-36) H D 01/23/18 09:15 ALT 46 U/L (7-56) 01/23/18 09:15 Alkaline Phosphatase 51 U/L (38-126) 01/23/18 09:15 Total Protein 7.7 g/dL (5.8-8.3) 01/23/18 09:15 Albumin 3.9 g/dL (3.0-4.8) 01/23/18 09:15 Globulin 3.8 gm/dL 01/23/18 09:15 Albumin/Globulin Ratio 1.0 (1.1-1.8) L 01/23/18 09:15 Lipase 52 U/L (23-300) 01/18/18 00:19 Urine Color Yellow (YELLOW) 01/18/18 00:27 Urine Appearance Turbid (CLEAR) 01/18/18 00:27 Urine pH 6.5 (4.7-8.0) 01/18/18 00:27 Ur Specific [place] 1.020 (1.005-1.035) 01/18/18 00:27 Urine Protein 30 mg/dL (<30 mg/dL) H 01/18/18 00:27 Urine Glucose (UA) Negative mg/dL (NEGATIVE) 01/18/18 00:27 Urine Ketones Negative mg/dL (NEGATIVE) 01/18/18 00:27 Urine Blood Moderate (NEGATIVE) H 01/18/18 00:27 Urine Nitrate Positive (NEGATIVE) H 01/18/18 00:27 Urine Bilirubin Negative (NEGATIVE) 01/18/18 00:27 Urine Urobilinogen 1.0 E.U./dL (<1 E.U./dL) H 01/18/18 00:27 Ur Leukocyte Esterase Large [place]/uL (NEGATIVE) H 01/18/18 00:27 Urine RBC 1 - 3 /hpf (0-2) 01/18/18 00:27 Urine WBC Tntc /hpf (0-6) 01/18/18 00:27 Ur Epithelial Cells 4 - 5 /hpf (0-5) 01/18/18 00:27 Urine Bacteria Many (NEG) 01/18/18 00:27 HIV 1&2 Ag/Ab, 4th Gen Nonreactive (Nonreactive) 01/18/18 06:45 - Hospital Course Hospital Course: Ms. Hooker is a 32 y/o female with no PMH presented to ED with 3 days h/o bilateral flank pain that's worse on the left side and radiated to both legs posteriorly and to the front of her abdomen. Pain was associated with nausea, chills. Patient denied vomiting, diarrhea, urinary frquency, urgency, burning urination, malodor urine or recent urinary infection. Patient denied chest pain , palpitation, WILKS, cough, dypnea, hemoptysis, hematemesis, dark stool, bleeding per rectum, rash. In the ED, UA was positive for large leukocyte esterase, positive nitrates, and protein. She was started on ceftriaxone, morphine, IVF, and zofran. She was admitted for suspected pyelonephritis. CT abd/pelvis showed mild left hydronephrosis with perinephric stranding and a left adnexal lesion likely a complicated cyst. Pelvic US was unremarkable. Renal US did not show any stones, solid mass lesions or hydronephrosis b/l. Transvaginal US showed an intramural uterine fibroid. UCx grew E.coli. Urology was consulted. They placed a stent in the L ureter. ID was consulted and recommended merem, then switched to rocephin and completion of 14 days upon discharge. General Surgery was consulted and had no surgical recommendations at the time. CLOTH HAULER was consulted and recommended outpatient follow up. Patient's pain was managed with dilaudid, percocet, and toradol. The stent was removed on 01/23. Patient reported some residual pain and hematuria. The following day, the patient denied any pain. She was discharged with instructions on follow up with primary care and medications upon discharge. Discharge Exam - Head Exam Head Exam: ATRAUMATIC, NORMAL INSPECTION, NORMOCEPHALIC - Eye Exam Eye Exam: EOMI Pupil Exam: NORMAL ACCOMODATION - Respiratory Exam Respiratory Exam: Clear to PA & Lateral, NORMAL BREATHING PATTERN - Cardiovascular Exam Cardiovascular Exam: REGULAR RHYTHM, +S1, +S2 - GI/Abdominal Exam GI & Abdominal Exam: Normal Bowel Sounds, Soft, Tenderness. absent: Distended, Firm - Extremities Exam Extremities exam: normal inspection - Back Exam Back exam: absent: CVA tenderness (L), CVA tenderness (R) - Neurological Exam Neurological exam: Alert, Oriented x3 - Psychiatric Exam Psychiatric exam: Normal Affect, Normal Mood - Skin Skin Exam: Normal Color Discharge Plan - Discharge Medications Prescriptions: Cephalexin [cephalexin] 500 mg PO BID #20 cap Lactobacillus Acidophilus [Bacid Acidophilus] 1 cap PO BID 15 Days cap - Follow Up Plan Condition: STABLE Disposition: HOME/ ROUTINE Instructions: Urinary Tract Infection in Women (DC), Dysuria (GEN) Additional Instructions: Please follow up with your primary care physician within 3 to 5 days. Please follow up with a shank rander at your already scheduled appointment on Tuesday01/30/18. Please take the following medications prescribed to you: Cephalexin twice a day (starting tomorrow) for 10 days Lactobacillus twice a day for 15 days If symptoms return, please visit the emergency department. Referrals: Cindy Laughlin MD [Primary Care Provider] - <Terrie Flannery - Last Filed: 01/25/18 17:07> Provider - Provider Date of Admission: 01/18/18 02:54 Attending physician: Terrie Flannery DO Primary care physician: Cindy Laughlin MD Hospital Course - Lab Results Lab Results: Micro Results 01/18/18 07:00 Blood-Venous Blood Culture - Final NO GROWTH AFTER 5 DAYS 01/18/18 07:00 Blood-Venous Gram Stain - Final TEST NOT PERFORMED 01/18/18 06:45 Blood-Venous Blood Culture - Final NO GROWTH AFTER 5 DAYS 01/18/18 06:45 Blood-Venous Gram Stain - Final TEST NOT PERFORMED Most Recent Lab Values WBC 5.1 10^3/ul (4.5-11.0) D 01/24/18 06:20 RBC 3.55 10^6/uL (3.5-6.1) 01/24/18 06:20 Hgb 10.9 g/dL (12.0-16.0) L 01/24/18 06:20 Hct 32.7 % (36.0-48.0) L 01/24/18 06:20 MCV 92.1 fl (80.0-105.0) 01/24/18 06:20 MCH 30.7 pg (25.0-35.0) 01/24/18 06:20 MCHC 33.3 g/dl (31.0-37.0) 01/24/18 06:20 RDW 12.5 % (11.5-14.5) 01/24/18 06:20 Plt Count 304 10^3/uL (120.0-450.0) 01/24/18 06:20 MPV 9.9 fl (7.0-11.0) 01/24/18 06:20 Gran % 49.3 % (50.0-68.0) L 01/24/18 06:20 Lymph % (Auto) 37.5 % (22.0-35.0) H 01/24/18 06:20 [place] % (Auto) 10.1 % (1.0-6.0) H 01/24/18 06:20 Eos % (Auto) 2.9 % (1.5-5.0) 01/24/18 06:20 Baso % (Auto) 0.2 % (0.0-3.0) 01/24/18 06:20 Gran # 2.53 (1.4-6.5) 01/24/18 06:20 Lymph # (Auto) 1.9 (1.2-3.4) 01/24/18 06:20 [place] # (Auto) 0.5 (0.1-0.6) 01/24/18 06:20 Eos # (Auto) 0.2 (0.0-0.7) 01/24/18 06:20 Baso # (Auto) 0.01 K/mm3 (0.0-2.0) 01/24/18 06:20 Neutrophils % (Manual) 87 % (50.0-70.0) H 01/18/18 06:45 Band Neutrophils % 1 % (0-2) 01/18/18 06:45 Lymphocytes % (Manual) 5 % (22.0-35.0) L 01/18/18 06:45 Monocytes % (Manual) 7 % (1.0-6.0) H 01/18/18 06:45 Platelet Evaluation Normal (NORMAL) 01/18/18 06:45 Sodium 141 mmol/L (132-148) 01/23/18 09:15 Potassium 4.4 mmol/L (3.6-5.0) 01/23/18 09:15 Chloride 102 mmol/L (98-107) 01/23/18 09:15 Carbon Dioxide 30 mmol/L (21-33) 01/23/18 09:15 Anion Gap 14 (10-20) 01/23/18 09:15 BUN 5 mg/dL (7-21) L 01/23/18 09:15 Creatinine 0.4 mg/dl (0.7-1.2) L 01/23/18 09:15 Est GFR ( Amer) > 60 01/23/18 09:15 Est GFR (Non-Af Amer) > 60 01/23/18 09:15 Random Glucose 92 mg/dL (70-110) 01/23/18 09:15 Lactic Acid 0.8 mmol/L (0.7-2.1) 01/19/18 12:00 Calcium 9.6 mg/dL (8.4-10.5) 01/23/18 09:15 Phosphorus 3.6 mg/dL (2.5-4.5) 01/22/18 03:55 Magnesium 2.0 mg/dL (1.7-2.2) 01/22/18 03:55 Total Bilirubin 0.2 mg/dL (0.2-1.3) 01/23/18 09:15 AST 39 U/L (14-36) H D 01/23/18 09:15 ALT 46 U/L (7-56) 01/23/18 09:15 Alkaline Phosphatase 51 U/L (38-126) 01/23/18 09:15 Total Protein 7.7 g/dL (5.8-8.3) 01/23/18 09:15 Albumin 3.9 g/dL (3.0-4.8) 01/23/18 09:15 Globulin 3.8 gm/dL 01/23/18 09:15 Albumin/Globulin Ratio 1.0 (1.1-1.8) L 01/23/18 09:15 Lipase 52 U/L (23-300) 01/18/18 00:19 Urine Color Yellow (YELLOW) 08/08/18 00:27 Urine Appearance Turbid (CLEAR) 01/18/18 00:27 Urine pH 6.5 (4.7-8.0) 01/18/18 00:27 Ur Specific [place] 1.020 (1.005-1.035) 01/18/18 00:27 Urine Protein 30 mg/dL (<30 mg/dL) H 01/18/18 00:27 Urine Glucose (UA) Negative mg/dL (NEGATIVE) 01/18/18 00:27 Urine Ketones Negative mg/dL (NEGATIVE) 01/18/18 00:27 Urine Blood Moderate (NEGATIVE) H 01/18/18 00:27 Urine Nitrate Positive (NEGATIVE) H 01/18/18 00:27 Urine Bilirubin Negative (NEGATIVE) 01/18/18 00:27 Urine Urobilinogen 1.0 E.U./dL (<1 E.U./dL) H 01/18/18 00:27 Ur Leukocyte Esterase Large [place]/uL (NEGATIVE) H 01/18/18 00:27 Urine RBC 1 - 3 /hpf (0-2) 01/18/18 00:27 Urine WBC Tntc /hpf (0-6) 01/18/18 00:27 Ur Epithelial Cells 4 - 5 /hpf (0-5) 01/18/18 00:27 Urine Bacteria Many (NEG) 01/18/18 00:27 HIV 1&2 Ag/Ab, 4th Gen Nonreactive (Nonreactive) 01/18/18 06:45 Attending/Attestation - Attestation I have personally seen and examined this patient.: Yes I have fully participated in the care of the patient.: Yes I have reviewed all pertinent clinical information, including history, physical exam and plan: Yes Notes (Text): Patient seen and examined by me with resident at 1:15PM 01/24/18. Case including discharge plan discussed with resident. Agree with above with following additions/corrections. Patient is a 32-year-old female with no significant past medical history that presented to the emergency room with 3 days of bilateral flank pain, worse on the left. Please see H&P for full details. Patient was admitted with bilateral flank pain and anemia. Urology was consulted. CT abdomen and pelvis on 01/18/2018 per radiologist showed left hydroureter/hydronephrosis likely the sequela of recently passed or nonvisible calculi, left adnexal cyst. Pelvic ultrasound on 01/18/2018 per radiologist showed septated mass/complex cyst left adnexa. Renal ultrasound on 01/18/2018 per radiologist showed unremarkable renal sonogram. ID was consulted for pyelonephritis. Urine culture was positive for Escherichia coli. Patient was placed on Rocephin and then meropenem. Meropenem was stopped and patient was restarted on Rocephin. She was placed on IV fluids. Surgery was consulted who did not recommend any surgical intervention. Case was discussed with gynecology for complex adnexal mass. Emergency Medicine Physician recommended patient follow up outpatient. Patient continued to have pain. Cystoscopy was done and a left pigtail stent was placed. Patient was febrile. Stent was removed by urology on 01/23/2018. Patient continued to have pain the day of stent removal. Pain resolved the following day. Patient was cleared for discharge by urology and infectious disease doctor on oral antibiotics. Patient was also found to have normocytic anemia. Hemoglobin was downtrending which may have been dilutional. Hemoglobin was up trending upon discharge. Hgb was 11.2 on admission and 10.9 on discharge. Patient was also found to have hypophosphatemia and hypokalemia which resolved with replacement. All symptoms improved upon discharge. She was cleared for discharge by all consultants. Patient was discharged home. On day of discharge, patient stated she was feeling much better. Dysuria improved. CVA tenderness resolved. Abdominal pain improved. No chest pain or shortness of breath. No nausea or vomiting. No fevers or chills. No headaches or dizziness. Physical exam: Gen: Awake and alert sitting up in bed in no acute distress HEENT: Normocephalic, atraumatic. Extraocular muscles intact, pupils equal reactive. No scleral icterus. Oropharynx is pink and moist. No pharyngeal erythema or exudate appreciated. Neck is supple. Cardiovascular: Normal rhythm. Normal S1, S2. No murmurs, rubs, or gallops appreciated Pulmonary: Normal respiratory effort. No rhonchi, rales or wheezing appreciated. Gastrointestinal: Soft, nontender, nondistended, positive bowel sounds all 4 quadrants, no guarding. Musculoskeletal: Normal range of motion all extremities, no calf tenderness. No CVA tenderness. Central nervous system: AAO x 3. Dermatologic: Skin warm and dry Please see chart for full details. Follow up instructions. Patient to follow up with PMD within 3-5 days. Follow up with shank rander at her scheduled appointment on 01/30/18. Take medications as prescribed. All instructions explained to patient in detail. Patient both understands and agrees to all instructions. Time spent in discharging the patient including chart review, medication reconciliation, discussion with the patient, medical services manager, consultants, and nursing staff was approximately 40 minutes.
== END 2018-01-24 17:38 | disposition home or self-care (01) | DRG 872 ==
LOC: ED 23:20 → ERH 01-18 02:54 → 5RNO 01-18 03:35
PROVIDERS: ADMIT Internal Medicine; ATTEND Hospitalist
PROC: 0TP98DZ Removal of Intraluminal Device from Ureter, Via Natural or Artificial Opening Endoscopic (ICD-10-PCS; 2018-01-23)
PROC: 0T778DZ Dilation of Left Ureter with Intraluminal Device, Via Natural or Artificial Opening Endoscopic (ICD-10-PCS; principal; 2018-01-23 07:30)
PROC: BT1FZZZ Fluoroscopy of Left Kidney, Ureter and Bladder (ICD-10-PCS; 2018-01-23 07:30)
DX: A41.51 Sepsis due to Escherichia coli [E. coli] (principal); N13.6 Pyonephrosis; D25.1 Intramural leiomyoma of uterus; D64.9 Anemia, unspecified; E83.39 Other disorders of phosphorus metabolism; E87.6 Hypokalemia; F17.200 Nicotine dependence, unspecified, uncomplicated; J45.909 Unspecified asthma, uncomplicated; K59.00 Constipation, unspecified; N83.209 Unspecified ovarian cyst, unspecified side; Z80.1 Family history of malignant neoplasm of trachea, bronchus and lung; Z80.6 Family history of leukemia; Z82.49 Family history of ischemic heart disease and other diseases of the circulatory system; Z87.442 Personal history of urinary calculi; Z90.710 Acquired absence of both cervix and uterus; Z98.891 History of uterine scar from previous surgery